=== PATIENT | female | born 1990 | race Two or more races ===

== ENCOUNTER 2017-01-22 07:00 | Inpatient (IN) | payer BC, OTHER ==
[2017-01-22] MEDS: Dextrose 5%-0.9% NaCl 1,000 ML IV SCH ×4 (08:00→18:30)
[2017-01-22] MEDS ORDERED: Oxytocin/Normal Saline 10 UNIT/1,000 ML BAG IV SCH (08:00)
[2017-01-22] MEDS ORDERED: Oxytocin 10 UNIT in Sodium Chloride 0.9% 1,000 ML IV SCH (08:45)
--- NOTE | 2017-01-22 17:53 | PCM.LDHP ---
L&D History of Present Illness - General Date of Service: 01/22/17 Admit Problem/Dx: Patient Status Order with Admit Dx/Problem 01/22/17 07:10 Admission Status [Patient Status] [ADT] Routine 01/22/17 16:54 Admission Status [Patient Status] [ADT] Routine Admission Diagnosis/Problem Admission Diagnosis/Problem Source of Information: Patient History Limitations: Reports: No limitations - History of Present Illness Introduction:: admitted for induction of labor. At term. Normal care. - Related Data Allergies/Adverse Reactions: Allergies Allergy/AdvReac Type Severity Reaction Status Date / Time nut - unspecified Allergy Itching Verified 01/22/17 07:50 venom-honey bee Allergy Hives Verified 01/22/17 07:50 [bee venom (honey bee)] Home Medications: Home Meds Ondansetron [Zofran ODT] 4 mg PO Q6H PRN #10 tab.dis 06/18/16 [Rx] PWV556/Iron Fumarate/FA/DSS [ 19 Tablet] 1 tab PO DAILY 06/18/16 [ History] Metoclopramide [Reglan] 5 mg PO TID PRN 08/02/16 [History] Past Medical History HEENT History: Reports: None Cardiovascular History: Reports: Hypertension Respiratory History: Reports: Bronchitis, recurrent Gastrointestinal History: Reports: GERD Genitourinary History: Reports: None HOME HEALTH CARE PROVIDER History: Reports: Other Musculoskeletal History: CHRONIC SHOULDER PAIN. Neurological History: Reports: Migraines Psychiatric History: Reports: Anxiety, Depression Endocrine/Metabolic History: Reports: None Hematologic History: Reports: None Immunologic History: Reports: None Oncologic (Cancer) History: Reports: None Dermatologic History: Reports: Eczema - Infectious Disease History Infectious Disease History: Reports: Chicken pox - Past Surgical History Head Surgeries/Procedures: Reports: None HEENT Surgical History: Reports: None Cardiovascular Surgical History: Reports: None Respiratory Surgical History: Reports: None GI Surgical History: Reports: None Female Surgical History: Reports: None Endocrine Surgical History: Reports: None Neurological Surgical History: Reports: None Musculoskeletal Surgical History: Reports: None Oncologic Surgical History: Reports: None Dermatological Surgical History: Reports: None Social & Family History - Family History Family Medical History: Noncontributory HEENT: Reports: None Cardiac: Reports: Hypertension, [place] Respiratory: Reports: Asthma GI: Reports: GERD : Reports: None OBGYN: Reports: Ectopic , Musculoskeletal: Reports: Back pain, chronic, Osteoarthritis Neurological: Reports: Alzheimers disease Psychiatric: Reports: Abuse, victim of, Anxiety, Bipolar, Depression, Mood swings, Panic attack Endocrine/Metabolic: Reports: Diabetes, type II Hematologic: Reports: Anemia Immunologic: Reports: None Dermatologic: Reports: Eczema Oncologic: Reports: Breast, Skin - Tobacco Use Smoking Status *Q: Current Every Day Smoker Years of Tobacco use: 9 Packs/Tins Daily: 0.5 Used Tobacco, but Quit: No Second Hand Smoke Exposure: Yes - Caffeine Use Caffeine Use: Reports: None - Recreational Drug Use Recreational Drug Use: No H&P Review of Systems - Review of Systems: Review Of Systems: ROS reveals no pertinent complaints other than HPI. L&D Exam - Exam Exam: See Below - Vital Signs Vital Signs: Last Vital Signs Temp 98.1 F 01/22/17 17:00 Pulse 82 01/22/17 17:00 Resp 17 01/22/17 17:00 BP 120/79 01/22/17 17:00 Pulse Ox 100 01/22/17 17:00 Weight: 67.132 kg - OB Specific Contraction Duration (sec): 50-70 Contraction Frequency (min): 1-2 Contraction Intensity: Mild - Mckeon Score Mckeon Score Cervix Position: Midposition Mckeon Score Consistency: Medium Mckeon Score Dilation: 1-2 cm - Exam Quality Assessment: supplemental oxygen General: alert HEENT: PERRLA Neck: supple Cardiovascular: regular rate Abdomen: normal bowel sounds Rectal Exam: Normal exam Genitourinary: Normal external exam, Normal bimanual exam, Cervical dilitation, Enlarged uterus. No: Cervical fluid, Cervical lesions, Cervix motion tenderness , Vaginal discharge, Vaginal tears Back Exam: normal inspection Extremities: normal inspection Skin: warm Neurological: cranial nerves intact Psychiatric: alert, normal affect - Patient Data Result Diagrams: 01/23/17 06:20 - Problem List (1) Elective induction of labor planned SNOMED Code(s): 395333174 ICD Code: [id number] - Status: Acute Current Visit: Yes (2) Normal SNOMED Code(s): 16980137 ICD Code: Z34.90 - ENCNTR FOR SUPRVSN OF NORMAL , UNSP, UNSP TRIMESTER Status: Acute Current Visit: Yes Problem List Initiated/Reviewed/Updated: Yes Orders Last 24hrs: Active Orders 24 hr Category Date Time Status Admission Status [Patient Status] [ADT] Routine ADT 01/22/17 07:10 Active Admission Status [Patient Status] [ADT] Routine ADT 01/22/17 16:54 Active Communication Order [RC] ASDIRECTED Care 01/22/17 07:49 Active Communication Order [RC] ASDIRECTED Care 01/22/17 07:49 Active Communication Order [RC] ASDIRECTED Care 01/22/17 07:49 Active Communication Order [RC] ASDIRECTED Care 01/22/17 07:49 Active Notify Provider [RC] PRN Care 01/22/17 07:49 Active Notify Provider [RC] STAT Care 01/22/17 07:49 Active Vital Signs [RC] PER UNIT ROUTINE Care 01/22/17 07:49 Active Clear Liquid Diet [DIET] Diet 01/22/17 Lunch Active Dextrose 5%-0.9% NaCl [Dextrose 5%-Normal Saline] 1,000 Med 01/22/17 08:00 Active ml IV ASDIRECTED Oxytocin [Pitocin] 10 unit Med 01/22/17 08:45 Active Sodium Chloride 0.9% [Normal Saline] 1,000 ml IV TITRATE Medication Orders Dextrose/Sodium Chloride (Dextrose 5%-Normal Saline) 1,000 mls @ 125 mls/hr IV ASDIRECTED CARMELLA Last Admin: 01/22/17 15:39 Dose: 125 mls/hr Infusion: 01/22/17 15:39 Dose: 125 mls/hr Admin: 01/22/17 12:23 Dose: 125 mls/hr Infusion: 01/22/17 12:23 Dose: 125 mls/hr Admin: 01/22/17 08:00 Dose: 125 mls/hr Oxytocin 10 unit/ Sodium (Chloride) 1,001 mls @ 12.01 mls/hr IV TITRATE CARMELLA; 2 MUNITS/MIN PRN Reason: Protocol Last Titration: 01/22/17 17:00 Dose: 10 munits/min, 60.06 mls/hr Titration: 01/22/17 14:54 Dose: 12 munits/min, 72.07 mls/hr Titration: 01/22/17 14:25 Dose: 10 munits/min, 60.06 mls/hr Titration: 01/22/17 13:32 Dose: 8 munits/min, 48.04 mls/hr Titration: 01/22/17 12:52 Dose: 6 munits/min, 36.03 mls/hr Titration: 01/22/17 12:10 Dose: 4 munits/min, 24.02 mls/hr Titration: 01/22/17 11:18 Dose: 6 munits/min, 36.03 mls/hr Titration: 01/22/17 10:35 Dose: 8 munits/min, 48.04 mls/hr Titration: 01/22/17 09:34 Dose: 6 munits/min, 36.03 mls/hr Titration: 01/22/17 08:45 Dose: 4 munits/min, 24.02 mls/hr Admin: 01/22/17 08:15 Dose: 2 munits/min, 12.01 mls/hr Assessment/Plan Comment:: Start Pitocin.
[2017-01-22] MEDS ORDERED: fentaNYL 100 MCG/2 ML SDV ITHECAL ONE (19:45)
[2017-01-22] MEDS ORDERED: Morphine PF 10 MG/10 ML SDV ONE (19:45)
[2017-01-22] MEDS ORDERED: Naloxone 0.4 MG/ML SDV IVPUSH PRN ×2 (19:48)
[2017-01-22] MEDS ORDERED: diphenhydrAMINE 50 MG/ML SDV IVPUSH PRN ×2 (19:48)
[2017-01-22] MEDS ORDERED: Nalbuphine 10 MG/1 ML Vial IVPUSH PRN (19:48)
[2017-01-22] MEDS ORDERED: Naltrexone 50 MG Tab PO SCH (19:48)
[2017-01-22] MEDS ORDERED: Naloxone 0.4 MG in Sodium Chloride 0.9% 100 ML IV PRN (19:48)
[2017-01-22] MEDS ORDERED: ePHEDrine 50 MG/ML SDV IVPUSH PRN (19:48)
[2017-01-22] MEDS ORDERED: Naltrexone 50 MG Tab PO PRN (19:48)
[2017-01-22] MEDS ORDERED: hydrOXYzine HCl 50 MG/ML SDV IM PRN ×2 (19:48)
[2017-01-22] MEDS: Ondansetron 4 MG/2 ML SDV IVPUSH SCH (20:34)
[2017-01-22] MEDS ORDERED: Lactated Ringers 1,000 ML IV SCH (22:45)
[2017-01-23] MEDS: Ibuprofen 600 MG Tab PO SCH ×5 (00:29→23:36)
--- NOTE | 2017-01-23 00:44 | OR ---
DATE OF OPERATION: 01/22/2017 SURGEON: Marky Tovar MD OPERATION: Vacuum extraction or vacuum assisted vaginal delivery. INDICATION: 1. Non-reassuring heart tones (bradycardia). 2. Maternal exertion. 3. Arrested second stage of labor. PERMIT: I explained the risks and benefits to the patient and the family members of vacuum extraction. I covered hemorrhage interventricular maternal injury among others and they accepted the risks and benefits. PREPARATION: The bladder was emptied about 350 mL before delivery; thereafter, estimated baby weight to be about 6.5 to 7 pounds was made. The position of the baby AMAN was determined. The patient already had anesthesia. Vacuum was applied using the [employer] standard vacuum portable and pressure applied to achieve maximum vacuum. There were three total pulls and two detachments and there was progress with each. The station of the baby was +2 and there were no known contraindications present. Date of confinement is 01/22. The baby's head was delivered. The nuchal cord reduced and the rest of the baby was gently extracted after the vacuum was detached. The placenta delivered shortly afterwards intact. There was a grade 2 midline laceration that was repaired expeditiously with 3-0 Vicryl. Estimated blood loss was about 300 mL. The mother tolerated the procedure well. We will continue to follow the baby and the mother in the delivery. The product of the delivery was a vigorous live male , 7 pounds 0 ounces with score of 9 and 9. /[id number] DAVONTE/JAMES
[2017-01-23] MEDS: Acetaminophen/HYDROcodone 325-5 MG Tab PO PRN ×5 (02:10→21:55)
[2017-01-23] MEDS: Ondansetron 4 MG/2 ML SDV IVPUSH SCH ×4 (02:11→21:59)
[2017-01-23] MEDS ORDERED: Morphine 2 MG/ML Syringe IVPUSH PRN (04:10)
[2017-01-23] MEDS: Docusate Sodium 100 MG Cap PO PRN (11:35)
--- NOTE | 2017-01-23 15:42 | CR ---
INDICATION: Pain right hip since Willi position for delivery. RIGHT HIP AND PELVIS: Frontal view of the pelvis and frontal and lateral views of the right hip revealed suggestion of some very minimal degenerative change at the right hip joint with the joint spaces bilaterally well-maintained. Slight separation is noted at the pubic symphysis, not uncommon post delivery. The sacroiliac joints appear to be intact. Hip joint appear to be otherwise intact with no acute fracture or dislocation. Normal bone density is noted. IMPRESSION: Essentially normal pelvis and right hip. Very minimal degenerative change may be present at the right hip joint with a small calcific density along the craniolateral aspect of the acetabulum on the right. There does appear to be slight separation of the pubic symphysis. This likely is on the basis of state, rather than significant abnormality. MTDD
--- NOTE | 2017-01-23 19:25 | PCM.PNPP ---
- General Info Date of Service: 01/23/17 Functional Status: Reports: tolerating diet, new symptoms (Right hip pain,severe ,developed after delivery.Unable to ambulate.). Denies: pain controlled, ambulating - General Info Date of Service: 01/23/17 - Patient Data Vital Signs - most recent: Last Vital Signs Temp 98.1 F 01/23/17 18:00 Pulse 74 01/23/17 18:00 Resp 16 01/23/17 08:00 BP 116/64 01/23/17 18:00 Pulse Ox 98 01/23/17 18:00 Weight - most recent: 67.132 kg I&O - last 24 hours: Intake & Output 01/23/17 01/23/17 01/23/17 06:59 14:59 22:59 Intake Total 750 1150 Output Total 1550 Balance -800 1150 Lab Results - last 24 hrs: Laboratory Results - last 24 hr 01/23/17 Range/Units 06:20 WBC 16.1 H (4.5-12.0) X10-3/uL RBC 3.21 L (3.23-5.20) x10(6)uL Hgb 9.7 L D (11.5-15.5) g/dL Hct 29.3 L D (30.0-51.3) % MCV 91.2 (80-96) fL MCH 30.3 (27.7-33.6) pg MCHC 33.2 (32.2-35.4) g/dL RDW 13.5 (11.5-15.5) % Plt Count 275 (125-369) X10(3)uL MPV 9.1 (7.4-10.4) fL Add Manual Diff Yes Neutrophils % (Manual) 86 H (46-82) % Lymphocytes % (Manual) 12 L (13-37) % Monocytes % (Manual) 2 L (4-12) % Med Orders - Current: Current Medications Hydrocodone Bitart/Acetaminophen ([place] 325-5 Mg) 1 tab PO Q4H PRN PRN Reason: Pain (moderate 4-6) Last Admin: 01/23/17 13:57 Dose: 1 tab Hydrocodone Bitart/Acetaminophen ([place] 325-5 Mg) 2 tab PO Q4H PRN PRN Reason: Pain (moderate 4-6) Diphenhydramine HCl (Benadryl) 25 mg IVPUSH ASDIRECTED PRN PRN Reason: SEVERE EXTRAPYRAMIDAL SYMP Diphenhydramine HCl (Benadryl) 25 mg IVPUSH ASDIRECTED PRN PRN Reason: PRURITUS Docusate Sodium (Colace) 100 mg PO BID PRN PRN Reason: Stool Softener Last Admin: 01/23/17 11:35 Dose: 100 mg Ephedrine Sulfate (Ephedrine Sulfate) 5 mg IVPUSH ASDIRECTED PRN PRN Reason: HYPOTENSION Hydroxyzine HCl (Vistaril) 25 - 50 mg IM Q6H PRN PRN Reason: PRURITUS Hydroxyzine HCl (Vistaril) 25 - 50 mg IM Q4H PRN PRN Reason: N/V Dextrose/Sodium Chloride (Dextrose 5%-Normal Saline) 1,000 mls @ 125 mls/hr IV ASDIRECTED CARMELLA Last Admin: 01/22/17 18:30 Dose: 125 mls/hr Oxytocin 10 unit/ Sodium (Chloride) 1,001 mls @ 12.01 mls/hr IV TITRATE CARMELLA; 2 MUNITS/MIN PRN Reason: Protocol Last Titration: 01/22/17 20:28 Dose: 6 munits/min, 36.03 mls/hr Naloxone HCl 0.4 mg/ Sodium (Chloride) 101 mls @ 25 mls/hr IV ASDIRECTED PRN PRN Reason: RESPIRATORY STATUS Lactated Ringer's (Ringers, Lactated) 1,000 mls @ 150 mls/hr IV ASDIRECTED CARMELLA Last Admin: 01/23/17 05:44 Dose: 150 mls/hr Ibuprofen (Motrin) 600 mg PO Q6H [facility] Last Admin: 01/23/17 17:34 Dose: 600 mg Morphine Sulfate (Morphine) 2 mg IVPUSH Q2H PRN PRN Reason: Pain (severe 7-10) Nalbuphine HCl (Nubain) 10 mg IVPUSH Q1H PRN PRN Reason: PRURITUS Naloxone HCl (Narcan) 0.1 mg IVPUSH ASDIRECTED PRN PRN Reason: RESPIRATROY STATUS Naloxone HCl (Narcan) 0.2 mg IVPUSH ASDIRECTED PRN PRN Reason: REVERSAL Naltrexone HCl (Naltrexone) 25 mg PO ONETIME CARMELLA Last Admin: 01/23/17 00:30 Dose: 25 mg Naltrexone HCl (Naltrexone) 25 mg PO ASDIRECTED PRN PRN Reason: REVERSAL Ondansetron HCl (Zofran) 4 mg IVPUSH Q6H CARMELLA Last Admin: 01/23/17 13:56 Dose: Not Given Discontinued Medications Oxytocin/Sodium Chloride (Pitocin In Ns 10 Units/1,000 Ml) 10 unit in 1,000 mls @ 12 mls/hr IV TITRATE CARMELLA; 2 MUNITS/MIN PRN Reason: Protocol - Interaction Disposition, : in Room with Family Infant Interaction: Holding Infant Support Person: Significant Other, Friend - Recovery Exam Fundal Tone: Firm Fundal Level: At Umbilicus Fundal Placement: Midline Lochia Amount: Small Lochia Color: Rubra/Red Perineum Description: Intact, Minimal Bruising/Swelling, Hemorrhoids Episiotomy/Laceration: Approximated Bladder Status: Voiding Urinary Elimination: Voided - Exam Cardiovascular: Regular Rate Abdomen: bowel sounds present Extremities: no calf tenderness, other (Decreased range of motion right hip.). No: no tenderness/swelling Skin: warm Neurological: no new focal deficit Psy/Mental Status: alert - Problem List & Annotations (1) Elective induction of labor planned SNOMED Code(s): 875006951 Code(s): [id number] - Status: Acute Current Visit: Yes (2) Normal SNOMED Code(s): 00648479 Code(s): Z34.90 - ENCNTR FOR SUPRVSN OF NORMAL , UNSP, UNSP TRIMESTER Status: Acute Current Visit: Yes Qualifiers: Trimester: third trimester Qualified Code(s): Z34.93 - Encounter for supervision of normal , unspecified, third trimester (3) care and examination SNOMED Code(s): 290550601, 283174389, 015379273 Code(s): Z39.2 - ENCOUNTER FOR ROUTINE FOLLOW-UP Status: Acute Current Visit: Yes (4) Hip pain SNOMED Code(s): 60422120, 128291421 Code(s): M25.559 - PAIN IN UNSPECIFIED HIP Status: Acute Current Visit: Yes Qualifiers: Laterality: right Qualified Code(s): M25.551 - Pain in right hip - Problem List Review Problem List Initiated/Reviewed/Updated: Yes - My Orders Last 24 Hours: My Active Orders 01/22/17 19:48 Nalbuphine [Nubain] 10 mg IVPUSH Q1H PRN Naloxone [Narcan] 0.1 mg IVPUSH ASDIRECTED PRN Naloxone [Narcan] 0.2 mg IVPUSH ASDIRECTED PRN Naloxone [Narcan] 0.4 mg Sodium Chloride 0.9% [Normal Saline] 100 ml IV ASDIRECTED Naltrexone 25 mg PO ASDIRECTED PRN Naltrexone 25 mg PO ONETIME diphenhydrAMINE [Benadryl] 25 mg IVPUSH ASDIRECTED PRN diphenhydrAMINE [Benadryl] 25 mg IVPUSH ASDIRECTED PRN ePHEDrine [ePHEDrine Sulfate] 5 mg IVPUSH ASDIRECTED PRN hydrOXYzine HCl [Vistaril] 25 - 50 mg IM Q4H PRN hydrOXYzine HCl [Vistaril] 25 - 50 mg IM Q6H PRN 01/22/17 20:00 Ondansetron [Zofran] 4 mg IVPUSH Q6H 01/22/17 22:45 Lactated Ringers [Ringers, Lactated] 1,000 ml IV ASDIRECTED 01/22/17 23:45 Ibuprofen [Motrin] 600 mg PO Q6H 01/22/17 23:59 Up ad Delia [RC] ASDIRECTED Vital Signs [RC] PFP Acetaminophen/HYDROcodone [[place] 325-5 MG] 1 tab PO Q4H PRN Assess Uterine Involution [WOMSER] Per Unit Routine Breast Pump [WOMSER] Per Unit Routine Ice Therapy [OM.PC] Per Unit Routine Perineal Care [OM.PC] Per Unit Routine Sitz Bath [OM.PC] Per Unit Routine Resuscitation Status Routine 01/23/17 04:09 Acetaminophen/HYDROcodone [[place] 325-5 MG] 2 tab PO Q4H PRN 01/23/17 04:10 Morphine 2 mg IVPUSH Q2H PRN 01/23/17 09:00 Docusate Sodium [Colace] 100 mg PO BID PRN - Plan Plan:: Reviewed Xray hip,negative. Discussed with Dr Emmanuel Will treat symptomatically. Maybe have PT see her if it's not improving. Encourage ambulation Otherwise continue routine post care.
[2017-01-24] MEDS: Acetaminophen/HYDROcodone 325-5 MG Tab PO PRN ×4 (01:47→21:55)
[2017-01-24] MEDS: Ondansetron 4 MG/2 ML SDV IVPUSH SCH ×4 (05:45→20:00)
[2017-01-24] MEDS: Ibuprofen 600 MG Tab PO SCH ×4 (05:46→23:40)
--- NOTE | 2017-01-24 13:52 | PCM.PNPP ---
- General Info Date of Service: 01/24/17 Admission Dx/Problem (Free Text): Patient Status Order with Admit Dx/Problem 01/22/17 07:10 Admission Status [Patient Status] [ADT] Routine 01/22/17 16:54 Admission Status [Patient Status] [ADT] Routine Admission Diagnosis/Problem Admission Diagnosis/Problem Functional Status: Reports: pain controlled, tolerating diet - Review of Systems General: Reports: No Symptoms HEENT: Reports: no symptoms Pulmonary: Reports: no symptoms Cardiovascular: Reports: No Symptoms Gastrointestinal: Reports: No symptoms Genitourinary: Reports: no symptoms Musculoskeletal: Reports: no symptoms Skin: Reports: no symptoms Neurological: Reports: No Symptoms Psychiatric: Reports: no symptoms - General Info Date of Service: 01/24/17 - Patient Data Vital Signs - most recent: Last Vital Signs Temp 98.5 F 01/24/17 07:30 Pulse 72 01/24/17 07:30 Resp 18 01/24/17 07:30 BP 111/65 01/24/17 07:30 Pulse Ox 99 01/24/17 07:30 Weight - most recent: 67.132 kg Med Orders - Current: Current Medications Hydrocodone Bitart/Acetaminophen ([place] 325-5 Mg) 1 tab PO Q4H PRN PRN Reason: Pain (moderate 4-6) Last Admin: 01/23/17 21:55 Dose: 1 tab Hydrocodone Bitart/Acetaminophen ([place] 325-5 Mg) 2 tab PO Q4H PRN PRN Reason: Pain (moderate 4-6) Last Admin: 01/24/17 08:51 Dose: 2 tab Diphenhydramine HCl (Benadryl) 25 mg IVPUSH ASDIRECTED PRN PRN Reason: SEVERE EXTRAPYRAMIDAL SYMP Diphenhydramine HCl (Benadryl) 25 mg IVPUSH ASDIRECTED PRN PRN Reason: PRURITUS Docusate Sodium (Colace) 100 mg PO BID PRN PRN Reason: Stool Softener Last Admin: 01/23/17 11:35 Dose: 100 mg Ephedrine Sulfate (Ephedrine Sulfate) 5 mg IVPUSH ASDIRECTED PRN PRN Reason: HYPOTENSION Hydroxyzine HCl (Vistaril) 25 - 50 mg IM Q6H PRN PRN Reason: PRURITUS Hydroxyzine HCl (Vistaril) 25 - 50 mg IM Q4H PRN PRN Reason: N/V Dextrose/Sodium Chloride (Dextrose 5%-Normal Saline) 1,000 mls @ 125 mls/hr IV ASDIRECTED CARMELLA Last Admin: 01/22/17 18:30 Dose: 125 mls/hr Oxytocin 10 unit/ Sodium (Chloride) 1,001 mls @ 12.01 mls/hr IV TITRATE CARMELLA; 2 MUNITS/MIN PRN Reason: Protocol Last Titration: 01/22/17 20:28 Dose: 6 munits/min, 36.03 mls/hr Naloxone HCl 0.4 mg/ Sodium (Chloride) 101 mls @ 25 mls/hr IV ASDIRECTED PRN PRN Reason: RESPIRATORY STATUS Lactated Ringer's (Ringers, Lactated) 1,000 mls @ 150 mls/hr IV ASDIRECTED CARMELLA Last Admin: 01/23/17 05:44 Dose: 150 mls/hr Ibuprofen (Motrin) 600 mg PO Q6H CARMELLA Last Admin: 01/24/17 12:18 Dose: 600 mg Morphine Sulfate (Morphine) 2 mg IVPUSH Q2H PRN PRN Reason: Pain (severe 7-10) Nalbuphine HCl (Nubain) 10 mg IVPUSH Q1H PRN PRN Reason: PRURITUS Naloxone HCl (Narcan) 0.1 mg IVPUSH ASDIRECTED PRN PRN Reason: RESPIRATROY STATUS Naloxone HCl (Narcan) 0.2 mg IVPUSH ASDIRECTED PRN PRN Reason: REVERSAL Naltrexone HCl (Naltrexone) 25 mg PO ONETIME CARMELLA Last Admin: 01/23/17 00:30 Dose: 25 mg Naltrexone HCl (Naltrexone) 25 mg PO ASDIRECTED PRN PRN Reason: REVERSAL Ondansetron HCl (Zofran) 4 mg IVPUSH Q6H CARMELLA Last Admin: 01/24/17 08:47 Dose: Not Given Discontinued Medications Oxytocin/Sodium Chloride (Pitocin In Ns 10 Units/1,000 Ml) 10 unit in 1,000 mls @ 12 mls/hr IV TITRATE CARMELLA; 2 MUNITS/MIN PRN Reason: Protocol - Infant Interaction Disposition, : [place] in Room with Family Interaction: Holding Support Person: Significant Other, Friend - Recovery Exam Fundal Tone: Firm Fundal Level: At Umbilicus Fundal Placement: Midline Lochia Amount: Small, Moderate Lochia Color: Rubra/Red Perineum Description: Intact, Minimal Bruising/Swelling, Hemorrhoids Episiotomy/Laceration: Approximated Bladder Status: Voiding Urinary Elimination: Voided - Exam General: alert, oriented HEENT: Pupils equal Neck: supple Lungs: Clear to auscultation, Normal respiratory effort Cardiovascular: Regular Rate, Regular Rhythm Abdomen: bowel sounds present, soft, no tenderness, no distension Extremities: no edema Skin: warm, dry, intact Wound/Incisions: healing well Neurological: no new focal deficit Psy/Mental Status: alert, normal affect, normal mood - Problem List & Annotations (1) Elective induction of labor planned SNOMED Code(s): 470762334 Code(s): BUN2119 - Status: Acute Current Visit: Yes (2) Normal SNOMED Code(s): 75989314 Code(s): Z34.90 - ENCNTR FOR SUPRVSN OF NORMAL , UNSP, UNSP TRIMESTER Status: Acute Current Visit: Yes Qualifiers: Trimester: third trimester Qualified Code(s): Z34.93 - Encounter for supervision of normal , unspecified, third trimester (3) care and examination SNOMED Code(s): 643675577, 202554278, 744382039 Code(s): Z39.2 - ENCOUNTER FOR ROUTINE FOLLOW-UP Status: Acute Current Visit: Yes (4) Hip pain SNOMED Code(s): 45210780, 314703578 Code(s): M25.559 - PAIN IN UNSPECIFIED HIP Status: Acute Current Visit: Yes Qualifiers: Laterality: right Qualified Code(s): M25.551 - Pain in right hip - Problem List Review Problem List Initiated/Reviewed/Updated: Yes - Plan Plan:: Pain better. DC in AM Consider ambualtory PT
[2017-01-24] MEDS: Docusate Sodium 100 MG Cap PO PRN (16:13)
[2017-01-25] MEDS: Ibuprofen 600 MG Tab PO SCH ×2 (06:11→12:07)
[2017-01-25] MEDS: Acetaminophen/HYDROcodone 325-5 MG Tab PO PRN (08:27)
[2017-01-25] MEDS: Docusate Sodium 100 MG Cap PO PRN (08:28)
--- NOTE | 2017-01-25 08:59 | PCM.PNPP ---
- General Info Date of Service: 01/25/17 Functional Status: Reports: pain controlled - Review of Systems General: Reports: No Symptoms HEENT: Reports: no symptoms Pulmonary: Reports: no symptoms Cardiovascular: Reports: No Symptoms Gastrointestinal: Reports: No symptoms Genitourinary: Reports: no symptoms Musculoskeletal: Reports: no symptoms Skin: Reports: no symptoms Neurological: Reports: No Symptoms Psychiatric: Reports: no symptoms - General Info Date of Service: 01/25/17 - Patient Data Vital Signs - most recent: Last Vital Signs Temp 98.4 F 01/25/17 00:00 Pulse 78 01/25/17 00:00 Resp 20 01/25/17 00:00 BP 117/75 01/25/17 00:00 Pulse Ox 98 01/25/17 00:00 Weight - most recent: 67.132 kg Med Orders - Current: Current Medications Hydrocodone Bitart/Acetaminophen ([place] 325-5 Mg) 1 tab PO Q4H PRN PRN Reason: Pain (moderate 4-6) Last Admin: 01/25/17 08:27 Dose: 1 tab Hydrocodone Bitart/Acetaminophen ([place] 325-5 Mg) 2 tab PO Q4H PRN PRN Reason: Pain (moderate 4-6) Last Admin: 01/24/17 16:12 Dose: 2 tab Diphenhydramine HCl (Benadryl) 25 mg IVPUSH ASDIRECTED PRN PRN Reason: SEVERE EXTRAPYRAMIDAL SYMP Diphenhydramine HCl (Benadryl) 25 mg IVPUSH ASDIRECTED PRN PRN Reason: PRURITUS Docusate Sodium (Colace) 100 mg PO BID PRN PRN Reason: Stool Softener Last Admin: 01/25/17 08:28 Dose: 100 mg Ephedrine Sulfate (Ephedrine Sulfate) 5 mg IVPUSH ASDIRECTED PRN PRN Reason: HYPOTENSION Hydroxyzine HCl (Vistaril) 25 - 50 mg IM Q6H PRN PRN Reason: PRURITUS Hydroxyzine HCl (Vistaril) 25 - 50 mg IM Q4H PRN PRN Reason: N/V Dextrose/Sodium Chloride (Dextrose 5%-Normal Saline) 1,000 mls @ 125 mls/hr IV ASDIRECTED CARMELLA Last Admin: 01/22/17 18:30 Dose: 125 mls/hr Oxytocin 10 unit/ Sodium (Chloride) 1,001 mls @ 12.01 mls/hr IV TITRATE CARMELLA; 2 MUNITS/MIN PRN Reason: Protocol Last Titration: 01/22/17 20:28 Dose: 6 munits/min, 36.03 mls/hr Naloxone HCl 0.4 mg/ Sodium (Chloride) 101 mls @ 25 mls/hr IV ASDIRECTED PRN PRN Reason: RESPIRATORY STATUS Lactated Ringer's (Ringers, Lactated) 1,000 mls @ 150 mls/hr IV ASDIRECTED CARMELLA Last Admin: 01/23/17 05:44 Dose: 150 mls/hr Ibuprofen (Motrin) 600 mg PO Q6H [facility] Last Admin: 01/25/17 06:11 Dose: 600 mg Morphine Sulfate (Morphine) 2 mg IVPUSH Q2H PRN PRN Reason: Pain (severe 7-10) Nalbuphine HCl (Nubain) 10 mg IVPUSH Q1H PRN PRN Reason: PRURITUS Naloxone HCl (Narcan) 0.1 mg IVPUSH ASDIRECTED PRN PRN Reason: RESPIRATROY STATUS Naloxone HCl (Narcan) 0.2 mg IVPUSH ASDIRECTED PRN PRN Reason: REVERSAL Naltrexone HCl (Naltrexone) 25 mg PO ONETIME [facility] Last Admin: 01/23/17 00:30 Dose: 25 mg Naltrexone HCl (Naltrexone) 25 mg PO ASDIRECTED PRN PRN Reason: REVERSAL Discontinued Medications Oxytocin/Sodium Chloride (Pitocin In Ns 10 Units/1,000 Ml) 10 unit in 1,000 mls @ 12 mls/hr IV TITRATE CARMELLA; 2 MUNITS/MIN PRN Reason: Protocol Ondansetron HCl (Zofran) 4 mg IVPUSH Q6H [facility] Last Admin: 01/24/17 20:00 Dose: Not Given - Interaction Infant Disposition, : [place] in Room with Family Infant Interaction: Holding Infant Feeding: Attempted ; Nursed Fair/Poor Support Person: Significant Other, Friend - Recovery Exam Fundal Tone: Firm Fundal Level: At Umbilicus Fundal Placement: Midline Lochia Amount: Small Lochia Color: Rubra/Red Perineum Description: Intact, Minimal Bruising/Swelling, Hemorrhoids Episiotomy/Laceration: Approximated Bladder Status: Voiding Urinary Elimination: Voided - Exam General: alert, oriented HEENT: Pupils equal Neck: supple Lungs: Clear to auscultation, Normal respiratory effort Cardiovascular: Regular Rate, Regular Rhythm Abdomen: bowel sounds present, soft, no tenderness, no distension Extremities: no edema Skin: warm, dry, intact Wound/Incisions: healing well Neurological: no new focal deficit Psy/Mental Status: alert, normal affect, normal mood - Problem List & Annotations (1) Elective induction of labor planned SNOMED Code(s): 049839012 Code(s): BSQ2596 - Status: Acute Current Visit: Yes (2) Normal SNOMED Code(s): 94825515 Code(s): Z34.90 - ENCNTR FOR SUPRVSN OF NORMAL , UNSP, UNSP TRIMESTER Status: Acute Current Visit: Yes Qualifiers: Trimester: third trimester Qualified Code(s): Z34.93 - Encounter for supervision of normal , unspecified, third trimester (3) care and examination SNOMED Code(s): 290655173, 673017290, 046775518 Code(s): Z39.2 - ENCOUNTER FOR ROUTINE FOLLOW-UP Status: Acute Current Visit: Yes (4) Hip pain SNOMED Code(s): 00508367, 667465318 Code(s): M25.559 - PAIN IN UNSPECIFIED HIP Status: Acute Current Visit: Yes Qualifiers: Laterality: right Qualified Code(s): M25.551 - Pain in right hip - Problem List Review Problem List Initiated/Reviewed/Updated: Yes - Plan Plan:: DC home today
--- NOTE | 2017-01-25 09:29 | PCM.DCSUM1 ---
Discharge Summary - Hospital Course Free Text/Narrative:: Did well. Pain stable. - Discharge Data Discharge Date: 01/25/17 Discharge Disposition: Home, Self-Care 01 Condition: Good - Discharge Diagnosis/Problem(s) (1) Elective induction of labor planned SNOMED Code(s): 450209262 ICD Code: [id number] - Status: Acute Current Visit: Yes (2) Normal SNOMED Code(s): 14779946 ICD Code: Z34.90 - ENCNTR FOR SUPRVSN OF NORMAL , UNSP, UNSP TRIMESTER Status: Acute Current Visit: Yes Qualifiers: Trimester: third trimester Qualified Code(s): Z34.93 - Encounter for supervision of normal , unspecified, third trimester (3) care and examination SNOMED Code(s): 900572015, 574882318, 331888608 ICD Code: Z39.2 - ENCOUNTER FOR ROUTINE FOLLOW-UP Status: Acute Current Visit: Yes (4) Hip pain SNOMED Code(s): 87924055, 567016421 ICD Code: M25.559 - PAIN IN UNSPECIFIED HIP Status: Acute Current Visit: Yes Qualifiers: Laterality: right Qualified Code(s): M25.551 - Pain in right hip - Discharge Plan Home Medications: Home Meds Ondansetron [Zofran ODT] 4 mg PO Q6H PRN #10 tab.dis 06/18/16 [Rx] [id number]/Iron Fumarate/FA/DSS [ 19 Tablet] 1 tab PO DAILY 06/18/16 [ History] Metoclopramide [Reglan] 5 mg PO TID PRN 08/02/16 [History] - Discharge Summary/Plan Comment DC Time >30 min.: Yes - General Info Date of Service: 01/25/17 Admission Dx/Problem (Free Text: Patient Status Order with Admit Dx/Problem 01/22/17 07:10 Admission Status [Patient Status] [ADT] Routine 01/22/17 16:54 Admission Status [Patient Status] [ADT] Routine Admission Diagnosis/Problem Admission Diagnosis/Problem Functional Status: Reports: pain controlled, tolerating diet - Review of Systems General: Reports: No Symptoms HEENT: Reports: no symptoms Pulmonary: Reports: no symptoms Cardiovascular: Reports: No Symptoms Gastrointestinal: Reports: No symptoms Genitourinary: Reports: no symptoms Musculoskeletal: Reports: no symptoms Skin: Reports: no symptoms Neurological: Reports: No Symptoms Psychiatric: Reports: no symptoms - Patient Data Vitals - Most Recent: Last Vital Signs Temp 98.4 F 01/25/17 00:00 Pulse 78 01/25/17 00:00 Resp 20 01/25/17 00:00 BP 117/75 01/25/17 00:00 Pulse Ox 98 01/25/17 00:00 Weight - Most Recent: 67.132 kg Med Orders - Current: Current Medications Hydrocodone Bitart/Acetaminophen ([place] 325-5 Mg) 1 tab PO Q4H PRN PRN Reason: Pain (moderate 4-6) Last Admin: 01/25/17 08:27 Dose: 1 tab Hydrocodone Bitart/Acetaminophen ([place] 325-5 Mg) 2 tab PO Q4H PRN PRN Reason: Pain (moderate 4-6) Last Admin: 01/24/17 16:12 Dose: 2 tab Diphenhydramine HCl (Benadryl) 25 mg IVPUSH ASDIRECTED PRN PRN Reason: SEVERE EXTRAPYRAMIDAL SYMP Diphenhydramine HCl (Benadryl) 25 mg IVPUSH ASDIRECTED PRN PRN Reason: PRURITUS Docusate Sodium (Colace) 100 mg PO BID PRN PRN Reason: Stool Softener Last Admin: 01/25/17 08:28 Dose: 100 mg Ephedrine Sulfate (Ephedrine Sulfate) 5 mg IVPUSH ASDIRECTED PRN PRN Reason: HYPOTENSION Hydroxyzine HCl (Vistaril) 25 - 50 mg IM Q6H PRN PRN Reason: PRURITUS Hydroxyzine HCl (Vistaril) 25 - 50 mg IM Q4H PRN PRN Reason: N/V Dextrose/Sodium Chloride (Dextrose 5%-Normal Saline) 1,000 mls @ 125 mls/hr IV ASDIRECTED CARMELLA Last Admin: 01/22/17 18:30 Dose: 125 mls/hr Oxytocin 10 unit/ Sodium (Chloride) 1,001 mls @ 12.01 mls/hr IV TITRATE CARMELLA; 2 MUNITS/MIN PRN Reason: Protocol Last Titration: 01/22/17 20:28 Dose: 6 munits/min, 36.03 mls/hr Naloxone HCl 0.4 mg/ Sodium (Chloride) 101 mls @ 25 mls/hr IV ASDIRECTED PRN PRN Reason: RESPIRATORY STATUS Lactated Ringer's (Ringers, Lactated) 1,000 mls @ 150 mls/hr IV ASDIRECTED [facility] Last Admin: 01/23/17 05:44 Dose: 150 mls/hr Ibuprofen (Motrin) 600 mg PO Q6H [facility] Last Admin: 01/25/17 06:11 Dose: 600 mg Morphine Sulfate (Morphine) 2 mg IVPUSH Q2H PRN PRN Reason: Pain (severe 7-10) Nalbuphine HCl (Nubain) 10 mg IVPUSH Q1H PRN PRN Reason: PRURITUS Naloxone HCl (Narcan) 0.1 mg IVPUSH ASDIRECTED PRN PRN Reason: RESPIRATROY STATUS Naloxone HCl (Narcan) 0.2 mg IVPUSH ASDIRECTED PRN PRN Reason: REVERSAL Naltrexone HCl (Naltrexone) 25 mg PO ONETIME [facility] Last Admin: 01/23/17 00:30 Dose: 25 mg Naltrexone HCl (Naltrexone) 25 mg PO ASDIRECTED PRN PRN Reason: REVERSAL Discontinued Medications Oxytocin/Sodium Chloride (Pitocin In Ns 10 Units/1,000 Ml) 10 unit in 1,000 mls @ 12 mls/hr IV TITRATE CARMELLA; 2 MUNITS/MIN PRN Reason: Protocol Ondansetron HCl (Zofran) 4 mg IVPUSH Q6H [facility] Last Admin: 01/24/17 20:00 Dose: Not Given - Exam General: Reports: alert, oriented HEENT: Reports: Pupils equal, Pupils reactive, EOMI, Mucous membr. moist/pink Neck: Reports: supple Lungs: Reports: Clear to auscultation, Normal respiratory effort Cardiovascular: Reports: Regular Rate, Regular Rhythm Abdomen: Reports: bowel sounds present, soft, no tenderness, no distension (Female) Exam: Normal external exam, Normal speculum exam, Normal bimanual exam Rectal (Female) Exam: Normal Exam, Normal rectal tone Back Exam: Reports: normal inspection, full range of motion Extremities: Reports: no edema, normal pulses Skin: Reports: warm, dry, intact Wound/Incisions: Reports: healing well Neurological: Reports: no new focal deficit Psy/Mental Status: Reports: alert, normal affect, normal mood EKG INTERPRETATION Rhythm: NSR *Q Meaningful Use (DIS) - VTE *Q VTE Criteria *Q: - Stroke *Q Stroke Criteria *Q: - AMI *Q AMI Criteria *Q:
[2017-01-25 10:12] VITALS: BP 130/71
== END 2017-01-25 13:20 | disposition home or self-care (01) | DRG 560 ==
LOC: FB.OB 07:00 → OBSVTOIN 16:54
PROVIDERS: ADMIT Family Medicine; ATTEND Family Medicine
PROC: 10D07Z6 Extraction of Products of Conception, Vacuum, Via Natural or Artificial Opening (ICD-10-PCS; principal; 2017-01-22)
DX: O76 Abnormality in fetal heart rate and rhythm complicating labor and delivery (principal); O99.89 Other specified diseases and conditions complicating pregnancy, childbirth and the puerperium; O99.62 Diseases of the digestive system complicating childbirth; O63.1 Prolonged second stage (of labor); M25.551 Pain in right hip; K21.9 Gastro-esophageal reflux disease without esophagitis; Z37.0 Single live birth; Z3A.39 39 weeks gestation of pregnancy
CPT/HCPCS: 36415; 73502-RT; 85025; A9270-GY; J2270; J2590; J3010; J7040; J7120

== ENCOUNTER 2017-08-16 04:01 | Emergency (ER) | payer SELFPAY ==
[2017-08-16 06:02] VITALS: BP 122/66
--- NOTE | 2017-08-16 06:05 | EDM.PDOCBH ---
ED HPI GENERAL MEDICAL PROBLEM - General Chief Complaint: Behavioral/Psych Stated Complaint: DEPRESSION Time Seen by Provider: 08/16/17 04:10 Source of Information: Reports: Patient History Limitations: Reports: No Limitations - History of Present Illness INITIAL COMMENTS - FREE TEXT/NARRATIVE: Patient is 6 months and is on Depression medication Zoloft. She is still depressed and is very anxious and is not sleeping well. She is up all the time and is irritable. She does not want to hurt herself or anyone else. She is uncomfortable and wants some help. 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 Medication(s) (Zoloft.) lower abdomen & back Pain Score (Numeric/FACES): 4 - Related Data Allergies Allergy/AdvReac Type Severity Reaction Status Date / Time nut - unspecified Allergy Itching Verified 08/16/17 04:30 venom-honey bee Allergy Hives Verified 08/16/17 04:30 [bee venom (honey bee)] Home Meds: Home Meds [id number]/Iron Fumarate/FA/DSS [ 19 Tablet] 1 tab PO DAILY 06/18/16 [ History] Ibuprofen 600 mg PO Q8H 08/16/17 [History] QUEtiapine [SEROquel] 25 mg PO BEDTIME 10 Days #10 tablet 08/16/17 [Rx] Sertraline [Zoloft] 100 mg PO DAILY 08/16/17 [History] Past Medical History HEENT History: Reports: None Cardiovascular History: Reports: Hypertension Respiratory History: Reports: Bronchitis, Recurrent Gastrointestinal History: Reports: GERD Genitourinary History: Reports: None 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 Neurological History: Reports: Migraines Psychiatric History: Reports: Anxiety, Depression Endocrine/Metabolic History: Reports: None Hematologic History: Reports: None Immunologic History: Reports: None Oncologic (Cancer) History: Reports: None Dermatologic History: Reports: Eczema - Infectious Disease History Infectious Disease History: Reports: Chicken Pox - Past Surgical History Head Surgeries/Procedures: Reports: None HEENT Surgical History: Reports: None Cardiovascular Surgical History: Reports: None GI Surgical History: Reports: None Female Surgical History: Reports: None Endocrine Surgical History: Reports: None Neurological Surgical History: Reports: None Musculoskeletal Surgical History: Reports: None Oncologic Surgical History: Reports: None Dermatological Surgical History: Reports: None Social & Family History - Family History Family Medical History: Noncontributory HEENT: Reports: None Cardiac: Reports: Hypertension, [place] Respiratory: Reports: Asthma GI: Reports: GERD : Reports: None OBGYN: Reports: Ectopic , Musculoskeletal: Reports: Back pain, Chronic, Osteoarthritis Neurological: Reports: Alzheimers Disease Psychiatric: Reports: Abuse, Victim of, Anxiety, Bipolar, Depression, Mood Swings, Panic Attack Endocrine/Metabolic: Reports: Diabetes, type II Hematologic: Reports: Anemia Immunologic: Reports: None Dermatologic: Reports: Eczema Oncologic: Reports: Breast, Skin - Tobacco Use Smoking Status *Q: Current Every Day Smoker Years of Tobacco use: 10 Packs/Tins Daily: 0.7 Used Tobacco, but Quit: No Second Hand Smoke Exposure: Yes - Caffeine Use Caffeine Use: Reports: Coffee, Soda, Tea - Recreational Drug Use Recreational Drug Use: No ED ROS GENERAL - Review of Systems Review Of Systems: ROS reveals no pertinent complaints other than HPI. ED EXAM, BEHAVIORAL HEALTH - Physical Exam Exam: See Below Exam Limited By: No Limitations General Appearance: Alert, WD/WN, No Apparent Distress Eye Exam: Bilateral Eye: EOMI, Normal Fundi, Normal Inspection, PERRL Ears: Normal External Exam, Normal Canal, Hearing Grossly Normal, Normal TMs Nose: Normal Inspection, Normal Mucosa, No Blood Throat/Mouth: Normal Inspection, Normal Lips, Normal Teeth, Normal Gums, Normal Oropharynx, Normal Voice, No Airway Compromise Head: Atraumatic, Normocephalic Neck: Normal Inspection, Supple, Non-Tender, Full Range of Motion Respiratory/Chest: No Respiratory Distress, Lungs Clear, Normal Breath Sounds, No Accessory Muscle Use, Chest Non-Tender Cardiovascular: Normal Peripheral Pulses GI/Abdominal: Normal Bowel Sounds, Soft, Non-Tender, No Organomegaly, No Distention, No Abnormal Bruit, No Mass Back Exam: Normal Inspection, Full Range of Motion, NT Extremities: Normal Inspection, Normal Range of Motion, Non-Tender, Normal Capillary Refill, No Pedal Edema Neurological: Alert, Normal Mood/Affect, CN II-XII Intact, Normal Cognition, Normal Gait, Normal Reflexes, No Motor/Sensory Deficits, Oriented x 3 Psychiatric: Depressed Mood, Restless, Agitated, Pressured Speech Skin Exam: Warm, Dry, Intact, Normal color, No rash COURSE, BEHAVIORAL HEALTH COMP - Course Vital Signs: Last Vital Signs Temp 36.6 C 08/16/17 06:01 Pulse 100 08/16/17 06:01 Resp 17 08/16/17 06:01 BP 122/66 08/16/17 06:01 Pulse Ox 95 08/16/17 06:01 Orders, Labs, Meds: Laboratory Tests 08/16/17 08/16/17 08/16/17 Range/Units 04:45 04:45 04:45 WBC 7.3 (4.5-12.0) X10-3/uL RBC 4.21 (3.23-5.20) x10(6)uL Hgb 13.2 D (11.5-15.5) g/dL Hct 38.5 (30.0-51.3) % MCV 91.6 (80-96) fL MCH 31.3 (27.7-33.6) pg MCHC 34.2 (32.2-35.4) g/dL RDW 14.0 (11.5-15.5) % Plt Count 394 H (125-369) X10(3)uL MPV 8.6 (7.4-10.4) fL Neut % (Auto) 50.0 (46-82) % Lymph % (Auto) 36.6 (13-37) % [place] % (Auto) 9.9 (4-12) % Eos % (Auto) 3 (1.0-5.0) % Baso % (Auto) 1 (0-2) % Neut # (Auto) 3.7 (1.6-8.3) # Lymph # (Auto) 2.7 (0.6-5.0) # [place] # (Auto) 0.7 (0.0-1.3) # Eos # (Auto) 0.2 (0.0-0.8) # Baso # (Auto) 0.0 (0.0-0.2) # Sodium 144 D (135-145) mmol/L Potassium 3.1 L (3.5-5.3) mmol/L Chloride 109 D (100-110) mmol/L Carbon Dioxide 26 (23-29) mmol/L BUN 9 (5-20) mg/dL Creatinine 0.6 (0.6-1.3) mg/dL Est Cr Clr Drug Dosing 114.33 mL/min Estimated GFR (MDRD) > 60 (>60) BUN/Creatinine Ratio 15.0 (9-20) Glucose 116 (80-116) mg/dL Calcium 8.0 L (8.6-10.2) mg/dL Total Bilirubin 0.2 (0.1-1.3) mg/dL AST 17 (5-27) IU/L ALT 12 L (14-26) IU/L Alkaline Phosphatase 83 (56-112) IU/L Total Protein 7.2 (6.0-8.0) g/dL Albumin 4.3 (3.5-5.2) g/dL Globulin 2.9 g/dL Albumin/Globulin Ratio 1.5 TSH, Ultra Sensitive 0.65 (0.4-5.5) nlU/mL Urine Color (YELLOW) Urine Appearance (CLEAR) Urine pH (5.0-6.5) Ur Specific [place] (1.010-1.025) Urine Protein (NEGATIVE) mg/dL Urine Glucose (UA) (NEGATIVE) mg/dL Urine Ketones (NEGATIVE) mg/dL Urine Occult Blood (NEGATIVE) Urine Nitrite (NEGATIVE) Urine Bilirubin (NEGATIVE) Urine Urobilinogen (NEGATIVE) mg/dL Ur Leukocyte Esterase (NEGATIVE) Urine RBC (0) Urine WBC (0) Ur Squamous Epith Cells (NS,R,O) Urine Bacteria (NS) 08/16/17 Range/Units 04:55 WBC (4.5-12.0) X10-3/uL RBC (3.23-5.20) x10(6)uL Hgb (11.5-15.5) g/dL Hct (30.0-51.3) % MCV (80-96) fL MCH (27.7-33.6) pg MCHC (32.2-35.4) g/dL RDW (11.5-15.5) % Plt Count (125-369) X10(3)uL MPV (7.4-10.4) fL Neut % (Auto) (46-82) % Lymph % (Auto) (13-37) % [place] % (Auto) (4-12) % Eos % (Auto) (1.0-5.0) % Baso % (Auto) (0-2) % Neut # (Auto) (1.6-8.3) # Lymph # (Auto) (0.6-5.0) # [place] # (Auto) (0.0-1.3) # Eos # (Auto) (0.0-0.8) # Baso # (Auto) (0.0-0.2) # Sodium (135-145) mmol/L Potassium (3.5-5.3) mmol/L Chloride (100-110) mmol/L Carbon Dioxide (23-29) mmol/L BUN (5-20) mg/dL Creatinine (0.6-1.3) mg/dL Est Cr Clr Drug Dosing mL/min Estimated GFR (MDRD) (>60) BUN/Creatinine Ratio (9-20) Glucose (80-116) mg/dL Calcium (8.6-10.2) mg/dL Total Bilirubin (0.1-1.3) mg/dL AST (5-27) IU/L ALT (14-26) IU/L Alkaline Phosphatase (56-112) IU/L Total Protein (6.0-8.0) g/dL Albumin (3.5-5.2) g/dL Globulin g/dL Albumin/Globulin Ratio TSH, Ultra Sensitive (0.4-5.5) nlU/mL Urine Color Yellow (YELLOW) Urine Appearance Clear (CLEAR) Urine pH 6.5 (5.0-6.5) Ur Specific [place] 1.010 (1.010-1.025) Urine Protein Negative (NEGATIVE) mg/dL Urine Glucose (UA) Normal (NEGATIVE) mg/dL Urine Ketones Negative (NEGATIVE) mg/dL Urine Occult Blood Negative (NEGATIVE) Urine Nitrite Negative (NEGATIVE) Urine Bilirubin Negative (NEGATIVE) Urine Urobilinogen Normal (NEGATIVE) mg/dL Ur Leukocyte Esterase Negative (NEGATIVE) Urine RBC 0-5 (0) Urine WBC 0-5 (0) Ur Squamous Epith Cells Rare (NS,R,O) Urine Bacteria Occasional H (NS) Re-Assessment/Re-Exam: Patient did fall asleep and had an uneventful ED course. She will be started on Seroquel 25 mg po qhs, #10. No until she sees Dr. Tovar next week. Departure - Departure Time of Disposition: 06:08 Disposition: Home, Self-Care 01 Condition: Good Clinical Impression: Depression affecting , - Discharge Information Prescriptions: QUEtiapine [SEROquel] 25 mg PO BEDTIME 10 Days #10 tablet Instructions: Hypokalemia Referrals: Marky Tovar MD [Primary Care Provider] - Forms: ED Department Discharge Additional Instructions: Eat plenty of banana and oranges. See primary care provider as necessary.
== END 2017-08-16 06:10 | disposition home or self-care (01) ==
LOC: FB.ED 04:01
DX: F53 Mental and behavioral disorders associated with the puerperium, not elsewhere classified (principal); F17.210 Nicotine dependence, cigarettes, uncomplicated; Z91.030 Bee allergy status; Z91.018 Allergy to other foods
CPT/HCPCS: 36415; 80053; 81001; 84443; 85025; 99283; 99284

== ENCOUNTER 2017-09-26 00:59 | Emergency (ER) | payer SELFPAY ==
[2017-09-26 01:17] VITALS: BP 122/69
--- NOTE | 2017-09-26 01:26 | EDM.PDOC ---
ED HPI GENERAL MEDICAL PROBLEM - General Chief Complaint: General Stated Complaint: TOOTH PAIN Time Seen by Provider: 09/26/17 01:10 Source of Information: Reports: Patient History Limitations: Reports: No Limitations - History of Present Illness INITIAL COMMENTS - FREE TEXT/NARRATIVE: Briana comes in for inspection of a deeply caried molar that broke this evening while chewing food. There is residual pain, but no discharge or bleeding. She has had dental issues in the past, with reportedly limited resources for dental surgery. She has tried no meds. - Related Data Allergies Allergy/AdvReac Type Severity Reaction Status Date / Time nut - unspecified Allergy Itching Verified 08/16/17 04:30 venom-honey bee Allergy Hives Verified 08/16/17 04:30 [bee venom (honey bee)] Home Meds: Home Meds [id number]/Iron Fumarate/FA/DSS [ 19 Tablet] 1 tab PO DAILY 06/18/16 [ History] Ibuprofen 600 mg PO Q8H 08/16/17 [History] Sertraline [Zoloft] 100 mg PO DAILY 08/16/17 [History] Past Medical History HEENT History: Reports: None Cardiovascular History: Reports: Hypertension Respiratory History: Reports: Bronchitis, Recurrent Gastrointestinal History: Reports: GERD Genitourinary History: Reports: None 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 Neurological History: Reports: Migraines Psychiatric History: Reports: Anxiety, Depression Endocrine/Metabolic History: Reports: None Hematologic History: Reports: None Immunologic History: Reports: None Oncologic (Cancer) History: Reports: None Dermatologic History: Reports: Eczema - Infectious Disease History Infectious Disease History: Reports: Chicken Pox - Past Surgical History Head Surgeries/Procedures: Reports: None HEENT Surgical History: Reports: None Cardiovascular Surgical History: Reports: None GI Surgical History: Reports: None Female Surgical History: Reports: None Endocrine Surgical History: Reports: None Neurological Surgical History: Reports: None Musculoskeletal Surgical History: Reports: None Oncologic Surgical History: Reports: None Dermatological Surgical History: Reports: None Social & Family History - Family History Family Medical History: Noncontributory HEENT: Reports: None Cardiac: Reports: Hypertension, [place] Respiratory: Reports: Asthma GI: Reports: GERD : Reports: None OBGYN: Reports: Ectopic , Musculoskeletal: Reports: Back pain, Chronic, Osteoarthritis Neurological: Reports: Alzheimers Disease Psychiatric: Reports: Abuse, Victim of, Anxiety, Bipolar, Depression, Mood Swings, Panic Attack Endocrine/Metabolic: Reports: Diabetes, type II Hematologic: Reports: Anemia Immunologic: Reports: None Dermatologic: Reports: Eczema Oncologic: Reports: Breast, Skin - Tobacco Use Smoking Status *Q: Current Every Day Smoker Years of Tobacco use: 9 Packs/Tins Daily: 0.5 Used Tobacco, but Quit: No Second Hand Smoke Exposure: Yes - Caffeine Use Caffeine Use: Reports: None - Recreational Drug Use Recreational Drug Use: No ED ROS GENERAL - Review of Systems Review Of Systems: ROS reveals no pertinent complaints other than HPI. ED EXAM, GENERAL - Physical Exam Exam: See Below Exam Limited By: No Limitations General Appearance: Alert, WD/WN, No Apparent Distress Eye Exam: Bilateral Eye: EOMI, Normal Inspection, PERRL Ears: Normal External Exam Nose: Normal Inspection Throat/Mouth: Normal Lips, Other (extensive gum disease with a deeply caried #32 ; multiple teeth caried and missing) Head: Normocephalic Neck: Normal Inspection Respiratory/Chest: Lungs Clear Cardiovascular: Regular Rate, Rhythm Neurological: Alert, Oriented, CN II-XII Intact, No Motor/Sensory Deficits Psychiatric: Normal Affect, Normal Mood Skin Exam: Warm, Dry Lymphatic: No Adenopathy Course - Vital Signs Text/Narrative:: Briana remained stable at the [facility] ED. No meds were administered. Last Recorded V/S: Last Vital Signs Temp 36.6 C 09/26/17 01:10 Pulse 88 09/26/17 01:10 Resp 16 09/26/17 01:10 BP 122/69 09/26/17 01:10 Pulse Ox 98 09/26/17 01:10 Departure - Departure Time of Disposition: 01:24 Disposition: Home, Self-Care 01 Condition: Fair Clinical Impression: Caries involving multiple surfaces of tooth - Discharge Information Referrals: Marky Tovar MD [Primary Care Provider] - - Problem List & Annotations (1) Caries involving multiple surfaces of tooth SNOMED Code(s): 612929847 Code(s): K02.9 - DENTAL CARIES, UNSPECIFIED Status: Acute Current Visit: Yes Annotation/Comment:: I suggested packing cavitation with cotton impregnated with oil of cloves, and Ibuprofen for pain. She needs DDS consultation. - Problem List Review Problem List Initiated/Reviewed/Updated: Yes - Assessment/Plan Plan: Follow up with DDS.
== END 2017-09-26 01:25 | disposition home or self-care (01) ==
LOC: FB.ED 00:59
DX: K02.9 Dental caries, unspecified (principal); I10 Essential (primary) hypertension; F17.210 Nicotine dependence, cigarettes, uncomplicated; Z91.018 Allergy to other foods; Z91.030 Bee allergy status
CPT/HCPCS: 99282

== ENCOUNTER 2018-03-30 20:31 | Emergency (ER) | payer SELFPAY ==
--- NOTE | 2018-03-30 21:08 | EDM.PDOC ---
ED HPI GENERAL MEDICAL PROBLEM - General Stated Complaint: ABDOMINAL PAIN Time Seen by Provider: 03/30/18 20:31 Source of Information: Reports: Patient, Family (MOM) History Limitations: Reports: No Limitations - History of Present Illness INITIAL COMMENTS - FREE TEXT/NARRATIVE: 28 y.o.w.f -[id number] to the ed due to intermittent vag bleed. LNMP 02/18/2018, no bleed now. Her home test was pos. She was seen by her PMD in january.At that time her Urine HCG was neg and she was started on a BC pill. Pt is till interm bleeding, using 1 pad every 4 hours occ. No vag bleed now. No N/V/D or any other acute medical issues. BP 127/86 pulse 128 RR 18 Temp 99.2 Pulse 94% Onset Date: 02/18/18 Onset Time: 18:00 Duration: Week(s): lower abdomen Pain Score (Numeric/FACES): 3 - Related Data Allergies Allergy/AdvReac Type Severity Reaction Status Date / Time nut - unspecified Allergy Itching Verified 03/30/18 21:31 venom-honey bee Allergy Hives Verified 03/30/18 21:31 [bee venom (honey bee)] Home Meds: Home Meds Ibuprofen 600 mg PO Q8H 08/16/17 [History] Sertraline [Zoloft] 100 mg PO DAILY PRN 08/16/17 [History] Past Medical History HEENT History: Reports: None Cardiovascular History: Reports: Hypertension Other Cardiovascular History: Elevated BP when . 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 Neurological History: Reports: Migraines Psychiatric History: Reports: Anxiety, Depression Endocrine/Metabolic History: Reports: None Hematologic History: Reports: None Immunologic History: Reports: None Oncologic (Cancer) History: Reports: None Dermatologic History: Reports: Eczema - Infectious Disease History Infectious Disease History: Reports: Chicken Pox - Past Surgical History Head Surgeries/Procedures: Reports: None HEENT Surgical History: Reports: None Cardiovascular Surgical History: Reports: None GI Surgical History: Reports: None Female Surgical History: Reports: None Endocrine Surgical History: Reports: None Neurological Surgical History: Reports: None Musculoskeletal Surgical History: Reports: None Oncologic Surgical History: Reports: None Dermatological Surgical History: Reports: None Social & Family History - Family History Family Medical History: Noncontributory HEENT: Reports: None Cardiac: Reports: Hypertension, [place] Respiratory: Reports: Asthma GI: Reports: GERD : Reports: None OBGYN: Reports: Ectopic , Musculoskeletal: Reports: Back pain, Chronic, Osteoarthritis Neurological: Reports: Alzheimers Disease Psychiatric: Reports: Abuse, Victim of, Anxiety, Bipolar, Depression, Mood Swings, Panic Attack Endocrine/Metabolic: Reports: Diabetes, type II Hematologic: Reports: Anemia Immunologic: Reports: None Dermatologic: Reports: Eczema Oncologic: Reports: Breast, Skin - Caffeine Use Caffeine Use: Reports: None ED ROS GENERAL - Review of Systems Review Of Systems: See Below Constitutional: Reports: No Symptoms HEENT: Reports: No Symptoms Respiratory: Reports: No Symptoms Cardiovascular: Reports: No Symptoms Endocrine: Reports: No Symptoms GI/Abdominal: Reports: No Symptoms : Reports: No Symptoms Musculoskeletal: Reports: No Symptoms Skin: Reports: No Symptoms Neurological: Reports: No Symptoms Psychiatric: Reports: No Symptoms Hematologic/Lymphatic: Reports: No Symptoms Immunologic: Reports: No Symptoms ED EXAM - Physical Exam Exam: See Below Exam Limited By: No Limitations General Appearance: Alert, WD/WN, Mild Distress Eye Exam: Bilateral Eye: Normal Inspection Ears: Normal External Exam Nose: Normal Inspection Throat/Mouth: Normal Inspection, Normal Lips Head: Atraumatic, Normocephalic Neck: Normal Inspection, Supple, Non-Tender, Full Range of Motion Respiratory/Chest: No Respiratory Distress, Lungs Clear Cardiovascular: Normal Peripheral Pulses GI/Abdominal Exam: Normal Bowel Sounds, Soft Rectal Exam: Deferred (Female) Exam: Deferred for Placenta Previa Heart Tones: Not [place] Movement: Not Appreciated Back Exam: Normal Inspection Extremities: Normal Inspection Neurological: Alert, Oriented, CN II-XII Intact, Normal Cognition, Normal Gait Psychiatric: Anxious, Other (left the examination room severel times) Skin Exam: Warm, Dry, Intact, Pallor Lymphatic: No Adenopathy Course - Vital Signs Text/Narrative:: 28 y.o.w.f -xyxlzrfwuvr-[id number] to the ed due to intermittent vag bleed. LNMP 02/18/2018, no bleed now. Her home test was pos. She was seen by her PMD in january.At that time her Urine HCG was neg and she was started on a BC pill. Pt is till interm bleeding, using 1 pad every 4 hours occ. No vag bleed now. No N/V/D or any other acute medical issues. BP 127/86 pulse 128 RR 18 Temp 99.2 Pulse 94% Pt admitted she was drinking ETOH PE: WNWD W F with intermittant vaginal bleed since january 2018, H/O a pelvic fx Labs: CBC nl ETOH lab draw refused, UDS was neg HCG was 150 UA was neg Imaging: OB US: No fetus in Uterus Impression: Intermittent vag bleed. Intoxicated Tx: pt was drinking water to fill up the bladder for the OB US Reexam: No vag bleed since pt is in the ed, No Pain. Pt refused Pelvic exam. Pulse was 107 on Discharge Plan: D/C with instructions Last Recorded V/S: Last Vital Signs Temp 36.9 C 03/30/18 22:47 Pulse 107 H 03/30/18 22:47 Resp 17 03/30/18 22:47 BP 123/98 H 03/30/18 22:47 Pulse Ox 100 03/30/18 22:47 - Orders/Labs/Meds Orders: Active Orders 24 hr Category Date Time Status OB Ltd 1 or More Fetus [US] Routine Exams 03/30/18 22:43 Taken OB Transvaginal [US] Routine Exams 03/30/18 22:43 Taken DRUG SCREEN, URINE ALERE [URCHEM] Stat Lab 03/30/18 20:47 Ordered UA W/MICROSCOPIC [URIN] Stat Lab 03/30/18 20:47 Ordered Labs: Laboratory Tests 03/30/18 03/30/18 03/30/18 Range/Units 20:47 20:47 21:00 WBC 9.9 (4.5-12.0) X10-3/uL RBC 4.72 (3.23-5.20) x10(6)uL Hgb 14.7 (11.5-15.5) g/dL Hct 43.8 (30.0-51.3) % MCV 92.8 (80-96) fL MCH 31.2 (27.7-33.6) pg MCHC 33.6 (32.2-35.4) g/dL RDW 12.1 (11.5-15.5) % Plt Count 370 H (125-369) X10(3)uL MPV 8.6 (7.4-10.4) fL Neut % (Auto) 59.2 (46-82) % Lymph % (Auto) 33.5 (13-37) % [place] % (Auto) 3.9 L (4-12) % Eos % (Auto) 1 (1.0-5.0) % Baso % (Auto) 3 H (0-2) % Neut # (Auto) 5.9 (1.6-8.3) # Lymph # (Auto) 3.3 (0.6-5.0) # [place] # (Auto) 0.4 (0.0-1.3) # Eos # (Auto) 0.1 (0.0-0.8) # Baso # (Auto) 0.2 (0.0-0.2) # HCG, Quant (<5) mIU/mL Urine Color Yellow (YELLOW) Urine Appearance Clear (CLEAR) Urine pH 7.0 H (5.0-6.5) Ur Specific [place] 1.005 L (1.010-1.025) Urine Protein Negative (NEGATIVE) mg/dL Urine Glucose (UA) Normal (NEGATIVE) mg/dL Urine Ketones Negative (NEGATIVE) mg/dL Urine Occult Blood Negative (NEGATIVE) Urine Nitrite Negative (NEGATIVE) Urine Bilirubin Negative (NEGATIVE) Urine Urobilinogen Normal (NEGATIVE) mg/dL Ur Leukocyte Esterase Negative (NEGATIVE) Urine RBC Not seen (0) Urine WBC 0-5 (0) Ur Squamous Epith Cells Few H (NS,R,O) Urine Bacteria Rare H (NS) Urine Opiates Screen Negative (NEGATIVE) Ur Oxycodone Screen Negative (NEGATIVE) Ur Propoxyphene Screen Negative (NEGATIVE) Ur Barbituates Screen Negative (NEGATIVE) Ur Tricyclics Screen Negative (NEGATIVE) Ur Phencyclidine Scrn Negative (NEGATIVE) Ur Amphetamine Screen Negative (NEGATIVE) Urine MDMA Screen Negative (NEGATIVE) U Benzodiazepines Scrn Negative (NEGATIVE) U Cocaine Metab Screen Negative (NEGATIVE) U Marijuana (THC) Screen Negative (NEGATIVE) 03/30/18 Range/Units 21:00 WBC (4.5-12.0) X10-3/uL RBC (3.23-5.20) x10(6)uL Hgb (11.5-15.5) g/dL Hct (30.0-51.3) % MCV (80-96) fL MCH (27.7-33.6) pg MCHC (32.2-35.4) g/dL RDW (11.5-15.5) % Plt Count (125-369) X10(3)uL MPV (7.4-10.4) fL Neut % (Auto) (46-82) % Lymph % (Auto) (13-37) % [place] % (Auto) (4-12) % Eos % (Auto) (1.0-5.0) % Baso % (Auto) (0-2) % Neut # (Auto) (1.6-8.3) # Lymph # (Auto) (0.6-5.0) # [place] # (Auto) (0.0-1.3) # Eos # (Auto) (0.0-0.8) # Baso # (Auto) (0.0-0.2) # HCG, Quant 150 (<5) mIU/mL Urine Color (YELLOW) Urine Appearance (CLEAR) Urine pH (5.0-6.5) Ur Specific [place] (1.010-1.025) Urine Protein (NEGATIVE) mg/dL Urine Glucose (UA) (NEGATIVE) mg/dL Urine Ketones (NEGATIVE) mg/dL Urine Occult Blood (NEGATIVE) Urine Nitrite (NEGATIVE) Urine Bilirubin (NEGATIVE) Urine Urobilinogen (NEGATIVE) mg/dL Ur Leukocyte Esterase (NEGATIVE) Urine RBC (0) Urine WBC (0) Ur Squamous Epith Cells (NS,R,O) Urine Bacteria (NS) Urine Opiates Screen (NEGATIVE) Ur Oxycodone Screen (NEGATIVE) Ur Propoxyphene Screen (NEGATIVE) Ur Barbituates Screen (NEGATIVE) Ur Tricyclics Screen (NEGATIVE) Ur Phencyclidine Scrn (NEGATIVE) Ur Amphetamine Screen (NEGATIVE) Urine MDMA Screen (NEGATIVE) U Benzodiazepines Scrn (NEGATIVE) U Cocaine Metab Screen (NEGATIVE) U Marijuana (THC) Screen (NEGATIVE) Departure - Departure Time of Disposition: 22:32 Disposition: Home, Self-Care 01 Condition: Good Clinical Impression: Vaginal bleeding in - Discharge Information Instructions: Vaginal Bleeding During , First Trimester Referrals: Marky Tovar MD [Primary Care Provider] - Forms: ED Department Discharge Additional Instructions: Please f/u with your OBGYN a.s.a.p Repear a test in 3-4 days. Please come back if your symptoms get worse acutely - My Orders Last 24 Hours: My Active Orders 03/30/18 20:47 DRUG SCREEN, URINE ALERE [URCHEM] Stat UA W/MICROSCOPIC [URIN] Stat 03/30/18 22:43 OB Ltd 1 or More Fetus [US] Routine OB Transvaginal [US] Routine - Assessment/Plan Last 24 Hours: My Active Orders 03/30/18 20:47 DRUG SCREEN, URINE ALERE [URCHEM] Stat UA W/MICROSCOPIC [URIN] Stat 03/30/18 22:43 OB Ltd 1 or More Fetus [US] Routine OB Transvaginal [US] Routine
[2018-03-30 22:55] VITALS: BP 123/98
--- NOTE | 2018-04-02 15:25 | US ---
INDICATION: First trimester bleeding. ULTRASOUND, OB, TRANSCUTANEOUS AND TRANSVAGINAL: FINDINGS: Transcutaneous and transvaginal OB ultrasounds were obtained. Transvaginal was done to better evaluate for a . The uterus measures 7.1 x 4.1 x 4.6 cm. Endometrium measures 12 mm. No findings of intrauterine . No findings of ectopic . Correlate with laboratory values. Right ovary measures 3.2 x 1.9 x 3.8 cm, and the left ovary measures 2.7 x 1.2 x 1.5 cm. IMPRESSION: 1. No ultrasound findings of intrauterine . No findings of ectopic . Correlate with laboratory values and follow up as indicated. MTDD
== END 2018-03-30 22:47 | disposition home or self-care (01) ==
LOC: FB.ED 20:31
DX: O20.9 Hemorrhage in early pregnancy, unspecified (principal); O16.1 Unspecified maternal hypertension, first trimester; I10 Essential (primary) hypertension; O99.611 Diseases of the digestive system complicating pregnancy, first trimester; K21.9 Gastro-esophageal reflux disease without esophagitis; O99.341 Other mental disorders complicating pregnancy, first trimester; F41.9 Anxiety disorder, unspecified; F32.9 Major depressive disorder, single episode, unspecified; O99.331 Smoking (tobacco) complicating pregnancy, first trimester; F17.200 Nicotine dependence, unspecified, uncomplicated; O99.311 Alcohol use complicating pregnancy, first trimester; F10.129 Alcohol abuse with intoxication, unspecified; Z91.030 Bee allergy status; Z91.018 Allergy to other foods; O24.311 Unspecified pre-existing diabetes mellitus in pregnancy, first trimester; E11.9 Type 2 diabetes mellitus without complications; Z79.899 Other long term (current) drug therapy
CPT/HCPCS: 36415; 76815; 76817; 80305-QW; 81001; 84702; 85025; 99284

== ENCOUNTER 2018-06-26 00:39 | Emergency (ER) | payer MEDICAID ==
[2018-06-26 01:13] VITALS: BP 130/67
[2018-06-26] MEDS ORDERED: Ketorolac 60 MG/2 ML SDV IM ONE (01:50)
--- NOTE | 2018-06-26 01:57 | EDM.PDOC ---
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 Stated Complaint: LOWER ABD PAIN, Time Seen by Provider: 06/26/18 01:40 Source of Information: Reports: Patient History Limitations: Reports: No Limitations - History of Present Illness INITIAL COMMENTS - FREE TEXT/NARRATIVE: c/o acute alcohol intox pt says she is 14-17w gestation, has not made an appointment to see Dr Tovar has pain in her thighs, says it is from a ruptured pubic symphysis from her last pt cannot provide a coherent reason as to why she is acute intoxicated despite being FHT 164 no vaginal bleeding - Related Data Allergies Allergy/AdvReac Type Severity Reaction Status Date / Time nut - unspecified Allergy Itching Verified 06/26/18 01:11 venom-honey bee Allergy Hives Verified 06/26/18 01:11 [bee venom (honey bee)] Home Meds: Home Meds Ibuprofen 600 mg PO Q8H 08/16/17 [History] Past Medical History HEENT History: Reports: None Cardiovascular History: Reports: Hypertension Other Cardiovascular History: Elevated BP when . 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 Neurological History: Reports: Migraines Psychiatric History: Reports: Anxiety, Depression Endocrine/Metabolic History: Reports: None Hematologic History: Reports: None Immunologic History: Reports: None Oncologic (Cancer) History: Reports: None Dermatologic History: Reports: Eczema - Infectious Disease History Infectious Disease History: Reports: Chicken Pox - Past Surgical History Head Surgeries/Procedures: Reports: None HEENT Surgical History: Reports: None Cardiovascular Surgical History: Reports: None GI Surgical History: Reports: None Female Surgical History: Reports: None Endocrine Surgical History: Reports: None Neurological Surgical History: Reports: None Musculoskeletal Surgical History: Reports: None Oncologic Surgical History: Reports: None Dermatological Surgical History: Reports: None Social & Family History - Family History Family Medical History: Noncontributory HEENT: Reports: None Cardiac: Reports: Hypertension, [place] Respiratory: Reports: Asthma GI: Reports: GERD : Reports: None OBGYN: Reports: Ectopic , Musculoskeletal: Reports: Back pain, Chronic, Osteoarthritis Neurological: Reports: Alzheimers Disease Psychiatric: Reports: Abuse, Victim of, Anxiety, Bipolar, Depression, Mood Swings, Panic Attack Endocrine/Metabolic: Reports: Diabetes, type II Hematologic: Reports: Anemia Immunologic: Reports: None Dermatologic: Reports: Eczema Oncologic: Reports: Breast, Skin - Caffeine Use Caffeine Use: Reports: None ED ROS GENERAL - Review of Systems Review Of Systems: See Below Constitutional: Reports: No Symptoms HEENT: Reports: No Symptoms Respiratory: Reports: No Symptoms Cardiovascular: Reports: No Symptoms Endocrine: Reports: No Symptoms GI/Abdominal: Reports: No Symptoms : Reports: No Symptoms Musculoskeletal: Reports: Other (thigh pain) Skin: Reports: No Symptoms Neurological: Reports: No Symptoms Psychiatric: Reports: No Symptoms Hematologic/Lymphatic: Reports: No Symptoms Immunologic: Reports: No Symptoms ED EXAM, GI/ABD - Physical Exam Exam: See Below Exam Limited By: Other (thin, underweight) General Appearance: Other (acute alc intox) Nose: Normal Inspection, Normal Mucosa, No Blood Throat/Mouth: Normal Inspection, Normal Oropharynx, Normal Voice, No Airway Compromise Head: Atraumatic, Normocephalic Neck: Normal Inspection, Supple, Non-Tender, Full Range of Motion Respiratory/Chest: No Respiratory Distress, Lungs Clear, Normal Breath Sounds, No Accessory Muscle Use Cardiovascular: Regular Rate, Rhythm, No Edema, No JVD, No Murmur, No Rub GI/Abdominal Exam: Normal Bowel Sounds, Soft, Non-Tender, No Distention, Other ( fundus 10 cm above PS, PS is not tender to palpation, thighs are not tender to palpation, walks and moves without difficulty) Back Exam: Normal Inspection, Full Range of Motion. No: CVA Tenderness (R), CVA Tenderness (L) Extremities: Normal Inspection, Normal Range of Motion, Non-Tender, No Pedal Edema Neurological: Alert, CN II-XII Intact, Normal Gait, No Motor/Sensory Deficits Psychiatric: Anxious Skin Exam: Warm Lymphatic: No Adenopathy Course - Vital Signs Last Recorded V/S: Last Vital Signs Temp 37.1 C 06/26/18 01:00 Pulse 95 06/26/18 01:00 Resp 17 06/26/18 01:00 BP 130/67 06/26/18 01:00 Pulse Ox 95 06/26/18 01:00 - Orders/Labs/Meds Labs: Laboratory Tests 06/26/18 06/26/18 06/26/18 Range/Units 02:03 02:10 02:10 WBC 10.1 (4.5-12.0) X10-3/uL RBC 3.62 (3.23-5.20) x10(6)uL Hgb 11.6 D (11.5-15.5) g/dL Hct 33.7 D (30.0-51.3) % MCV 93.1 (80-96) fL MCH 32.1 (27.7-33.6) pg MCHC 34.5 (32.2-35.4) g/dL RDW 12.9 (11.5-15.5) % Plt Count 323 (125-369) X10(3)uL MPV 8.5 (7.4-10.4) fL Neut % (Auto) 66.1 (46-82) % Lymph % (Auto) 27.5 (13-37) % [place] % (Auto) 4.4 (4-12) % Eos % (Auto) 2 (1.0-5.0) % Baso % (Auto) 0 (0-2) % Neut # (Auto) 6.7 (1.6-8.3) # Lymph # (Auto) 2.8 (0.6-5.0) # [place] # (Auto) 0.4 (0.0-1.3) # Eos # (Auto) 0.2 (0.0-0.8) # Baso # (Auto) 0.0 (0.0-0.2) # Sodium 142 (135-145) mmol/L Potassium 3.4 L (3.5-5.3) mmol/L Chloride 104 (100-110) mmol/L Carbon Dioxide 25 (21-32) mmol/L BUN 6 L (7-18) mg/dL Creatinine 0.5 L (0.55-1.02) mg/dL Est Cr Clr Drug Dosing TNP Estimated GFR (MDRD) > 60 (>60) BUN/Creatinine Ratio 12.0 (9-20) Glucose 99 (80-116) mg/dL Calcium 8.8 (8.6-10.2) mg/dL Total Bilirubin < 0.1 L (0.1-1.3) mg/dL AST 11 (5-25) IU/L ALT 16 (12-36) U/L Alkaline Phosphatase 53 L (56-112) IU/L Total Protein 7.8 (6.0-8.0) g/dL Albumin 3.6 (3.5-5.2) g/dL Globulin 4.2 g/dL Albumin/Globulin Ratio 0.9 Urine Color Yellow (YELLOW) Urine Appearance Clear (CLEAR) Urine pH 7.0 H (5.0-6.5) Ur Specific [place] 1.005 L (1.010-1.025) Urine Protein Negative (NEGATIVE) mg/dL Urine Glucose (UA) Normal (NEGATIVE) mg/dL Urine Ketones Negative (NEGATIVE) mg/dL Urine Occult Blood Negative (NEGATIVE) Urine Nitrite Negative (NEGATIVE) Urine Bilirubin Negative (NEGATIVE) Urine Urobilinogen Normal (NEGATIVE) mg/dL Ur Leukocyte Esterase Negative (NEGATIVE) Urine RBC 0-5 (0) Urine WBC Not seen (0) Ur Squamous Epith Cells Rare (NS,R,O) Urine Bacteria Rare H (NS) Ethyl Alcohol (<0.03) % 06/26/18 Range/Units 02:10 WBC (4.5-12.0) X10-3/uL RBC (3.23-5.20) x10(6)uL Hgb (11.5-15.5) g/dL Hct (30.0-51.3) % MCV (80-96) fL MCH (27.7-33.6) pg MCHC (32.2-35.4) g/dL RDW (11.5-15.5) % Plt Count (125-369) X10(3)uL MPV (7.4-10.4) fL Neut % (Auto) (46-82) % Lymph % (Auto) (13-37) % [place] % (Auto) (4-12) % Eos % (Auto) (1.0-5.0) % Baso % (Auto) (0-2) % Neut # (Auto) (1.6-8.3) # Lymph # (Auto) (0.6-5.0) # [place] # (Auto) (0.0-1.3) # Eos # (Auto) (0.0-0.8) # Baso # (Auto) (0.0-0.2) # Sodium (135-145) mmol/L Potassium (3.5-5.3) mmol/L Chloride (100-110) mmol/L Carbon Dioxide (21-32) mmol/L BUN (7-18) mg/dL Creatinine (0.55-1.02) mg/dL Est Cr Clr Drug Dosing Estimated GFR (MDRD) (>60) BUN/Creatinine Ratio (9-20) Glucose (80-116) mg/dL Calcium (8.6-10.2) mg/dL Total Bilirubin (0.1-1.3) mg/dL AST (5-25) IU/L ALT (12-36) U/L Alkaline Phosphatase (56-112) IU/L Total Protein (6.0-8.0) g/dL Albumin (3.5-5.2) g/dL Globulin g/dL Albumin/Globulin Ratio Urine Color (YELLOW) Urine Appearance (CLEAR) Urine pH (5.0-6.5) Ur Specific [place] (1.010-1.025) Urine Protein (NEGATIVE) mg/dL Urine Glucose (UA) (NEGATIVE) mg/dL Urine Ketones (NEGATIVE) mg/dL Urine Occult Blood (NEGATIVE) Urine Nitrite (NEGATIVE) Urine Bilirubin (NEGATIVE) Urine Urobilinogen (NEGATIVE) mg/dL Ur Leukocyte Esterase (NEGATIVE) Urine RBC (0) Urine WBC (0) Ur Squamous Epith Cells (NS,R,O) Urine Bacteria (NS) Ethyl Alcohol 0.27 H* (<0.03) % Meds: Medications Discontinued Medications Generic Name Dose Route Start Last Admin Trade Name Freq PRN Reason Stop Dose Admin Ketorolac Tromethamine 60 mg 06/26/18 01:50 Toradol IM 06/26/18 01:51 ONETIME ONE - Re-Assessments/Exams Free Text/Narrative Re-Assessment/Exam: 06/26/18 02:43 labs neg except K 3.4 and ethanol .69 pt states she is taking MVI plus another "supplemental vitamin" pt interviewed with Kena HANNON present, pt concerned re her ruptured pubic ligament, long discussion re using heating pad and APAP pt walking here and has no clinical evidence of discomfort FHT 164, baby appears to be doing well, no threatened miscarriage Departure - Departure Time of Disposition: 02:46 Disposition: Home, Self-Care 01 Condition: Fair Clinical Impression: Sprain, symphysis pubis, Second trimester , Acute alcohol intoxication - Discharge Information *PRESCRIPTION DRUG MONITORING PROGRAM REVIEWED*: Not Applicable *COPY OF PRESCRIPTION DRUG MONITORING REPORT IN PATIENT INDIRA: Not Applicable Instructions: Alcohol Use During Referrals: Marky Tovar MD [Primary Care Provider] - Forms: ED Department Discharge Additional Instructions: Use heating pad or soak in a warm tub several times a day, as needed. For pain, may take acetaminophen 500 mg 2 tabs 4 times a day as needed. Do not drink alcohol when , not even one drink, as this can injure the baby's brain and cause alcohol syndrome. Other then your high alcohol level, your blood and urine tests indicate that the baby is doing well. See Dr Tovar as soon as possible for your initial OB visit.
== END 2018-06-26 03:15 | disposition home or self-care (01) ==
LOC: FB.ED 00:39
DX: O9A.212 Injury, poisoning and certain other consequences of external causes complicating pregnancy, second trimester (principal); S33.8XXA Sprain of other parts of lumbar spine and pelvis, initial encounter; O99.312 Alcohol use complicating pregnancy, second trimester; F10.129 Alcohol abuse with intoxication, unspecified; O10.012 Pre-existing essential hypertension complicating pregnancy, second trimester; Z3A.17 17 weeks gestation of pregnancy; Z91.018 Allergy to other foods; Z91.030 Bee allergy status; Y90.8 Blood alcohol level of 240 mg/100 ml or more; X58.XXXA Exposure to other specified factors, initial encounter
CPT/HCPCS: 36415; 80053; 81001; 85025; 96372; 99283; G0480; J1885

== ENCOUNTER 2018-12-04 06:26 | Inpatient (IN) | payer MEDICAID ==
[~2018-12-04 06:26] MED LIST: Lactated Ringers 1,000 ML IV SCH; Sodium Chloride 0.9% 10 ML Syringe FLUSH PRN
[2018-12-04] MEDS ORDERED: Citric Acid/Sodium Citrate Solution 30 ML Cup PO ONE (07:23)
[2018-12-04] MEDS ORDERED: Scopolamine 1.5 MG Transdermal Patch TRDERM ONE (07:23)
[2018-12-04] MEDS ORDERED: ceFAZolin 1 GM in Sodium Chloride 0.9% 50 ML IV ONE (08:00)
[2018-12-04] MEDS ORDERED: ceFAZolin 1 GM Vial IV ONE (08:00)
[2018-12-04] MEDS ORDERED: Nalbuphine 10 MG/1 ML Vial IVPUSH PRN (09:29)
[2018-12-04] MEDS ORDERED: Naloxone 0.4 MG/ML SDV IVPUSH PRN ×2 (09:29→09:44)
[2018-12-04] MEDS ORDERED: diphenhydrAMINE 50 MG/ML SDV IV PRN ×2 (09:29→10:00)
[2018-12-04] MEDS ORDERED: Ondansetron 4 MG/2 ML SDV IVPUSH PRN (09:29)
[2018-12-04] MEDS: Lactated Ringers 1,000 ML IV SCH ×4 (09:40→21:53)
[2018-12-04] MEDS ORDERED: ePHEDrine 50 MG/ML SDV IVPUSH PRN (09:44)
[2018-12-04] MEDS ORDERED: diphenhydrAMINE 50 MG/ML SDV IVPUSH PRN (09:44)
[2018-12-04] MEDS: Ketorolac 30 MG/ML SDV IVPUSH PRN ×2 (11:46→18:15)
--- NOTE | 2018-12-04 13:43 | OR ---
DATE OF OPERATION: 12/04/2018 SURGEON: Marky Tovar MD PROCEDURE PERFORMED: . CHOIRMASTER: Dr. Rolon ANESTHESIA: Spinal. PREOPERATIVE DIAGNOSES: 1. Term , primary section. 2. Prior cephalopelvic disproportion. POSTOPERATIVE DIAGNOSES: 1. Term , primary section. 2. Prior cephalopelvic disproportion. DESCRIPTION OF PROCEDURE: The patient accepted risks and benefits. She was taken to the OR, where anesthesia was obtained through the spinal. She was prepped in the usual sterile fashion, lying in the dorsal position with leftward tilt. After ascertaining adequate anesthesia, a Pfannenstiel incision was made and carried to the underlying fascia. This was scored in the middle and extended laterally using Lam scissors. Then using Leola clamps, the rectus was bluntly dissected from both inferior and lower portions. The muscles were in the middle. The peritoneum was entered sharply. A bladder blade was inserted, and reflection of the visceral peritoneum around the bladder was made. An incision using scalpel was made in the uterus in the lower uterine segment, carried laterally by traction. The baby's head was delivered, and all the infant came out atraumatically. Cord was cut and clamped. Baby was gently suctioned and handed to the awaiting nurses. After obtaining cord blood, the uterus was exteriorized and the placenta removed by traction. The uterus was then cleaned of all the clots and products of conception, and the incision was closed in 2 layers with no complications of bleeding. Adequate hemostasis was ascertained. After irrigation, the uterus was returned to the abdomen and the rectus fascia was closed with a 0 Vicryl running stitch. Thereafter, the skin was closed with a subcutaneous 3-0 running stitch with no complications. The patient received 1 g of Ancef preop, and the counts for laps, needles, and instruments were correct x3. The product of the was a live male with scores of 9 and 9. The baby and the mother are both stable in the post delivery unit. /[id number] DAVONTE/ROBBIEL
[2018-12-04] MEDS ORDERED: Midazolam 1 MG/ML 2 ML SDV IV ONE (16:29)
[2018-12-04] MEDS ORDERED: ePHEDrine 50 MG/ML SDV IV ONE (16:29)
[2018-12-04] MEDS ORDERED: Oxytocin 10 Units/1 ML SDV IV ONE ×2 (16:29)
[2018-12-04] MEDS ORDERED: Morphine PF 10 MG/10 ML SDV EPIDUR ONE (16:29)
[2018-12-05] MEDS: Ketorolac 30 MG/ML SDV IVPUSH PRN (00:19)
[2018-12-05] MEDS: Lactated Ringers 1,000 ML IV SCH (02:15)
[2018-12-05] MEDS ORDERED: Ibuprofen 600 MG Tab PO PRN (08:28)
--- NOTE | 2018-12-05 08:34 | PCM.PN ---
- General Info Date of Service: 12/05/18 Functional Status: Reports: Pain Controlled - Patient Data Vitals - Most Recent: Last Vital Signs Temp 98.1 F 12/04/18 15:00 Pulse 75 12/04/18 15:00 Resp 16 12/04/18 15:00 BP 105/60 12/04/18 15:00 Pulse Ox 99 12/04/18 15:00 Weight - Most Recent: 62.46 kg I&O - Last 24 Hours: Intake & Output 12/04/18 12/05/18 12/05/18 22:59 06:59 14:59 Intake Total 550 4901 Output Total 1500 2800 Balance -950 2101 Lab Results Last 24 Hours: Laboratory Results - last 24 hr 12/05/18 Range/Units 06:15 WBC 12.4 H (4.5-12.0) X10-3/uL RBC 3.02 L (3.23-5.20) x10(6)uL Hgb 9.3 L (11.5-15.5) g/dL Hct 28.6 L (30.0-51.3) % MCV 94.8 (80-96) fL MCH 30.9 (27.7-33.6) pg MCHC 32.6 (32.2-35.4) g/dL RDW 13.5 (11.5-15.5) % Plt Count 257 (125-369) X10(3)uL MPV 8.7 (7.4-10.4) fL Neut % (Auto) 70.0 (46-82) % Lymph % (Auto) 19.6 (13-37) % Cotton % (Auto) 8.9 (4-12) % Eos % (Auto) 1 (1.0-5.0) % Baso % (Auto) 0 (0-2) % Neut # (Auto) 8.7 H (1.6-8.3) # Lymph # (Auto) 2.4 (0.6-5.0) # Cotton # (Auto) 1.1 (0.0-1.3) # Eos # (Auto) 0.2 (0.0-0.8) # Baso # (Auto) 0.0 (0.0-0.2) # Med Orders - Current: Current Medications Hydrocodone Bitart/Acetaminophen ([place] 325-5 Mg) 1 tab PO Q6H PRN PRN Reason: Pain Diphenhydramine HCl (Benadryl) 25 mg IV ASDIRECTED PRN PRN Reason: Pruritus Ephedrine Sulfate (Ephedrine Sulfate) 5 mg IVPUSH ASDIRECTED PRN PRN Reason: Other Lactated Ringer's (Ringers, Lactated) 1,000 mls @ 125 mls/hr IV ASDIRECTED [facility] Last Infusion: 12/05/18 06:20 Dose: 250 mls/hr Lactated Ringer's (Ringers, Lactated) 1,000 mls @ 250 mls/hr IV ASDIRECTED [facility] Last Admin: 12/05/18 02:15 Dose: 250 mls/hr Ibuprofen (Motrin) 600 mg PO Q6H PRN PRN Reason: Pain Nalbuphine HCl (Nubain) 10 mg IVPUSH Q1H PRN PRN Reason: Pruritus Naloxone HCl (Narcan) 0.1 mg IVPUSH ONETIME PRN PRN Reason: Oversedation Ondansetron HCl (Zofran) 4 mg IVPUSH Q6H PRN PRN Reason: Nausea/Vomiting Sodium Chloride (Saline Flush) 10 ml FLUSH ASDIRECTED PRN PRN Reason: Keep Vein Open Discontinued Medications Cefazolin Sodium (Ancef) 1 gm IV ONETIME ONE Stop: 12/04/18 08:01 Last Admin: 12/04/18 07:42 Dose: 1 gm Citric Acid/Sodium Citrate (Bicitra Solution) 30 ml PO ONETIME ONE Stop: 12/04/18 07:24 Last Admin: 12/04/18 07:42 Dose: 30 ml Diphenhydramine HCl (Benadryl) 25 mg IV ONETIME PRN PRN Reason: Pruritus Diphenhydramine HCl (Benadryl) 25 mg IVPUSH Q6H PRN PRN Reason: Itching or Nausea Cefazolin Sodium 1 gm/ Sodium (Chloride) 50 mls @ 200 mls/hr IV ONETIME ONE Stop: 12/04/18 08:14 Ketorolac Tromethamine (Toradol) 30 mg IVPUSH Q6H PRN PRN Reason: Pain Stop: 12/09/18 11:16 Last Admin: 12/05/18 00:19 Dose: 30 mg Naloxone HCl (Narcan) 0.1 mg IVPUSH ONETIME PRN PRN Reason: Respiratory Depression Scopolamine (Transderm-Scop) 1.5 mg TRDERM ONETIME ONE Stop: 12/04/18 07:24 Last Admin: 12/04/18 07:41 Dose: 1.5 mg - Exam General: Alert, Oriented HEENT: Pupils Equal, Pupils Reactive, EOMI, Mucous Membr. Moist/[place] Neck: Supple Lungs: Clear to Auscultation, Normal Respiratory Effort Cardiovascular: Regular Rate, Regular Rhythm GI/Abdominal Exam: Normal Bowel Sounds, Soft, Non-Tender, No Organomegaly, No Distention, No Abnormal Bruit, No Mass, Pelvis Stable (Female) Exam: Normal External Exam, Normal Speculum Exam, Normal Bimanual Exam Back Exam: Normal Inspection, Full Range of Motion Extremities: Normal Inspection, Normal Range of Motion, Non-Tender, No Pedal Edema, Normal Capillary Refill Skin: Warm, Dry, Intact Wound/Incisions: Healing Well Neurological: No New Focal Deficit Psy/Mental Status: Alert, Normal Affect, Normal Mood - Problem List & Annotations (1) Delivery by elective section SNOMED Code(s): 271572302 Code(s): O82 - ENCOUNTER FOR DELIVERY WITHOUT INDICATION Status: Acute Current Visit: Yes (2) examination following delivery SNOMED Code(s): 150985145, 42603423, 643399652 Code(s): Z39.2 - ENCOUNTER FOR ROUTINE FOLLOW-UP Status: Acute Current Visit: Yes (3) care and examination SNOMED Code(s): 880383225, 845819219 Code(s): Z39.2 - ENCOUNTER FOR ROUTINE FOLLOW-UP Status: Acute Current Visit: No - Problem List Review Problem List Initiated/Reviewed/Updated: Yes - My Orders Last 24 Hours: My Active Orders 12/04/18 08:00 Insert Pope Catheter [Insert Urinary Catheter] [OM.PC] Q24H Urinary Catheter Assessment [RC] QSHIFT 12/04/18 09:44 Communication Order [RC] Per Unit Routine Communication Order [RC] Per Unit Routine Communication Order [RC] Per Unit Routine RT Incentive Spirometry [RC] Q4HWA Vital Signs [RC] PER UNIT ROUTINE ePHEDrine [ePHEDrine sulfate] 5 mg IVPUSH ASDIRECTED PRN 12/04/18 09:45 Lactated Ringers [Ringers, Lactated] 1,000 ml IV ASDIRECTED 12/04/18 19:53 Dressing Change [Wound Care] [RC] ASDIRECTED 12/04/18 Dinner Full Liquid Diet [DIET] 12/05/18 08:26 Remove Pope Catheter [Urinary Catheter Removal] [RC] Per Unit Routine Peripheral IV Discontinue [OM.PC] Routine 12/05/18 08:27 Acetaminophen/HYDROcodone [[place] 325-5 MG] 1 tab PO Q6H PRN 12/05/18 08:28 Ibuprofen [Motrin] 600 mg PO Q6H PRN - Plan Plan:: DC fluids. Advance diet,ambulate.DC pope.NOrco fopr pain.NSAID
[2018-12-05] MEDS: Ibuprofen 600 MG Tab PO SCH ×3 (09:14→21:18)
[2018-12-05] MEDS: Acetaminophen/HYDROcodone 325-5 MG Tab PO PRN ×2 (10:27→17:24)
[2018-12-06] MEDS: Acetaminophen/HYDROcodone 325-5 MG Tab PO PRN ×3 (00:25→19:22)
[2018-12-06] MEDS: Ibuprofen 600 MG Tab PO SCH ×4 (04:00→21:14)
--- NOTE | 2018-12-06 09:11 | PCM.PNPP ---
- General Info Date of Service: 12/06/18 Functional Status: Reports: Pain Controlled - Review of Systems General: Reports: No Symptoms HEENT: Reports: No Symptoms Pulmonary: Reports: No Symptoms Cardiovascular: Reports: No Symptoms Gastrointestinal: Reports: No Symptoms Genitourinary: Reports: No Symptoms Musculoskeletal: Reports: No Symptoms Skin: Reports: No Symptoms Neurological: Reports: No Symptoms Psychiatric: Reports: No Symptoms - General Info Date of Service: 12/06/18 - Patient Data Vital Signs - Most Recent: Last Vital Signs Temp 97.9 F 12/05/18 16:23 Pulse 64 12/06/18 00:27 Resp 16 12/06/18 00:27 BP 119/69 12/06/18 00:27 Pulse Ox 100 12/06/18 00:27 Weight - Most Recent: 62.46 kg Med Orders - Current: Current Medications Hydrocodone Bitart/Acetaminophen ([place] 325-5 Mg) 1 tab PO Q6H PRN PRN Reason: Pain Last Admin: 12/06/18 08:38 Dose: 1 tab Diphenhydramine HCl (Benadryl) 25 mg IV ASDIRECTED PRN PRN Reason: Pruritus Ephedrine Sulfate (Ephedrine Sulfate) 5 mg IVPUSH ASDIRECTED PRN PRN Reason: Other Lactated Ringer's (Ringers, Lactated) 1,000 mls @ 125 mls/hr IV ASDIRECTED [facility] Last Infusion: 12/05/18 06:20 Dose: 250 mls/hr Lactated Ringer's (Ringers, Lactated) 1,000 mls @ 250 mls/hr IV ASDIRECTED [facility] Last Admin: 12/05/18 02:15 Dose: 250 mls/hr Ibuprofen (Motrin) 600 mg PO Q6H [facility] Last Admin: 12/06/18 08:39 Dose: 600 mg Nalbuphine HCl (Nubain) 10 mg IVPUSH Q1H PRN PRN Reason: Pruritus Naloxone HCl (Narcan) 0.1 mg IVPUSH ONETIME PRN PRN Reason: Oversedation Ondansetron HCl (Zofran) 4 mg IVPUSH Q6H PRN PRN Reason: Nausea/Vomiting Sodium Chloride (Saline Flush) 10 ml FLUSH ASDIRECTED PRN PRN Reason: Keep Vein Open Discontinued Medications Cefazolin Sodium (Ancef) 1 gm IV ONETIME ONE Stop: 12/04/18 08:01 Last Admin: 12/04/18 07:42 Dose: 1 gm Citric Acid/Sodium Citrate (Bicitra Solution) 30 ml PO ONETIME ONE Stop: 12/04/18 07:24 Last Admin: 12/04/18 07:42 Dose: 30 ml Diphenhydramine HCl (Benadryl) 25 mg IV ONETIME PRN PRN Reason: Pruritus Diphenhydramine HCl (Benadryl) 25 mg IVPUSH Q6H PRN PRN Reason: Itching or Nausea Cefazolin Sodium 1 gm/ Sodium (Chloride) 50 mls @ 200 mls/hr IV ONETIME ONE Stop: 12/04/18 08:14 Ibuprofen (Motrin) 600 mg PO Q6H PRN PRN Reason: Pain Ketorolac Tromethamine (Toradol) 30 mg IVPUSH Q6H PRN PRN Reason: Pain Stop: 12/09/18 11:16 Last Admin: 12/05/18 00:19 Dose: 30 mg Naloxone HCl (Narcan) 0.1 mg IVPUSH ONETIME PRN PRN Reason: Respiratory Depression Scopolamine (Transderm-Scop) 1.5 mg TRDERM ONETIME ONE Stop: 12/04/18 07:24 Last Admin: 12/04/18 07:41 Dose: 1.5 mg - Infant Interaction Infant Disposition, : in Room with Family Infant Interaction: Holding Infant Support Person: Other (see below) - Recovery Exam Fundal Tone: Firm Fundal Level: 1 Fingerbreadths Above Umbilicus Fundal Placement: Midline Lochia Amount: Small, Moderate Lochia Color: Rubra/Red Perineum Description: Intact, Minimal Bruising/Swelling Episiotomy/Laceration: None Bladder Status: Indwelling Catheter in Place Urinary Elimination: Voided - Exam General: Alert, Oriented HEENT: Pupils Equal Neck: Supple Lungs: Clear to Auscultation, Normal Respiratory Effort Cardiovascular: Regular Rate, Regular Rhythm GI/Abdominal Exam: Normal Bowel Sounds, Soft, Non-Tender, No Organomegaly, No Distention, No Abnormal Bruit, No Mass, Pelvis Stable Extremities: Normal Inspection, Normal Range of Motion, Non-Tender, No Pedal Edema, Normal Capillary Refill Skin: Warm, Dry, Intact Wound/Incisions: Healing Well Neurological: No New Focal Deficit Psy/Mental Status: Alert, Normal Affect, Normal Mood - Problem List & Annotations (1) Delivery by elective section SNOMED Code(s): 145017592 Code(s): O82 - ENCOUNTER FOR DELIVERY WITHOUT INDICATION Status: Acute Current Visit: Yes (2) examination following delivery SNOMED Code(s): 008505971, 11416881, 765769634 Code(s): Z39.2 - ENCOUNTER FOR ROUTINE FOLLOW-UP Status: Acute Current Visit: Yes (3) care and examination SNOMED Code(s): 881900355, 557861063 Code(s): Z39.2 - ENCOUNTER FOR ROUTINE FOLLOW-UP Status: Acute Current Visit: No - Problem List Review Problem List Initiated/Reviewed/Updated: Yes - My Orders Last 24 Hours: My Active Orders 12/05/18 08:26 Remove Ramirez Catheter [Urinary Catheter Removal] [RC] Per Unit Routine Peripheral IV Discontinue [OM.PC] Routine 12/05/18 08:27 Acetaminophen/HYDROcodone [[place] 325-5 MG] 1 tab PO Q6H PRN 12/05/18 09:00 Ibuprofen [Motrin] 600 mg PO Q6H - Plan Plan:: Doing well.
[2018-12-07] MEDS: Ibuprofen 600 MG Tab PO SCH ×3 (03:37→15:24)
[2018-12-07] MEDS: Acetaminophen/HYDROcodone 325-5 MG Tab PO PRN ×2 (06:49→13:23)
--- NOTE | 2018-12-07 08:33 | PCM.PN ---
- General Info Date of Service: 12/07/18 Subjective Update: Patient is postop C/section day 3. she is feeling tired. she reports pain is well controlled. has BM yesterday. denies SOB, CP or dysuria. Patient is the baby. - Review of Systems General: Reports: No Symptoms, Fatigue HEENT: Reports: No Symptoms Pulmonary: Reports: No Symptoms Cardiovascular: Reports: No Symptoms Gastrointestinal: Reports: No Symptoms Genitourinary: Reports: No Symptoms Musculoskeletal: Reports: No Symptoms Skin: Reports: No Symptoms Neurological: Reports: No Symptoms Psychiatric: Reports: Depression - Patient Data Vitals - Most Recent: Last Vital Signs Temp 36.7 C 12/06/18 08:00 Pulse 77 12/06/18 08:00 Resp 16 12/06/18 08:00 BP 144/89 H 12/06/18 08:00 Pulse Ox 100 12/06/18 08:00 Weight - Most Recent: 62.46 kg Med Orders - Current: Current Medications Hydrocodone Bitart/Acetaminophen ([place] 325-5 Mg) 1 tab PO Q6H PRN PRN Reason: Pain Last Admin: 12/07/18 06:49 Dose: 1 tab Ibuprofen (Motrin) 600 mg PO Q6H [facility] Last Admin: 12/07/18 03:37 Dose: 600 mg Discontinued Medications Cefazolin Sodium (Ancef) 1 gm IV ONETIME ONE Stop: 12/04/18 08:01 Last Admin: 12/04/18 07:42 Dose: 1 gm Citric Acid/Sodium Citrate (Bicitra Solution) 30 ml PO ONETIME ONE Stop: 12/04/18 07:24 Last Admin: 12/04/18 07:42 Dose: 30 ml Diphenhydramine HCl (Benadryl) 25 mg IV ONETIME PRN PRN Reason: Pruritus Diphenhydramine HCl (Benadryl) 25 mg IV ASDIRECTED PRN PRN Reason: Pruritus Diphenhydramine HCl (Benadryl) 25 mg IVPUSH Q6H PRN PRN Reason: Itching or Nausea Ephedrine Sulfate (Ephedrine Sulfate) 5 mg IVPUSH ASDIRECTED PRN PRN Reason: Other Cefazolin Sodium 1 gm/ Sodium (Chloride) 50 mls @ 200 mls/hr IV ONETIME ONE Stop: 12/04/18 08:14 Lactated Ringer's (Ringers, Lactated) 1,000 mls @ 125 mls/hr IV ASDIRECTED [facility] Last Infusion: 12/05/18 06:20 Dose: 250 mls/hr Lactated Ringer's (Ringers, Lactated) 1,000 mls @ 250 mls/hr IV ASDIRECTED [facility] Last Admin: 12/05/18 02:15 Dose: 250 mls/hr Ibuprofen (Motrin) 600 mg PO Q6H PRN PRN Reason: Pain Ketorolac Tromethamine (Toradol) 30 mg IVPUSH Q6H PRN PRN Reason: Pain Stop: 12/09/18 11:16 Last Admin: 12/05/18 00:19 Dose: 30 mg Nalbuphine HCl (Nubain) 10 mg IVPUSH Q1H PRN PRN Reason: Pruritus Naloxone HCl (Narcan) 0.1 mg IVPUSH ONETIME PRN PRN Reason: Oversedation Naloxone HCl (Narcan) 0.1 mg IVPUSH ONETIME PRN PRN Reason: Respiratory Depression Ondansetron HCl (Zofran) 4 mg IVPUSH Q6H PRN PRN Reason: Nausea/Vomiting Scopolamine (Transderm-Scop) 1.5 mg TRDERM ONETIME ONE Stop: 12/04/18 07:24 Last Admin: 12/04/18 07:41 Dose: 1.5 mg Sodium Chloride (Saline Flush) 10 ml FLUSH ASDIRECTED PRN PRN Reason: Keep Vein Open - Problem List & Annotations (1) Delivery by elective section SNOMED Code(s): 861188581 Code(s): O82 - ENCOUNTER FOR DELIVERY WITHOUT INDICATION Status: Acute Current Visit: Yes - Problem List Review Problem List Initiated/Reviewed/Updated: Yes - Plan Plan:: Patient is s/p primary day 3. she is doing well. will discharge her home today. continue pain medication prn and stool softener. PCP appointment in one week as the patient is high risk of depression
--- NOTE | 2018-12-07 08:42 | PCM.DCSUM1 ---
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 Patient is doing well. no complication after surgery. Patient discharge home in medical stable condition. follow up with PCP in a week. Modified [place] Scale: Sev.Disablility Bedridden,Incont.&Require Constant Nrsg.Care/Attention Modified [place] Scale Score: 5 - Discharge Data Discharge Date: 12/07/18 Discharge Disposition: Home, Self-Care 01 Condition: Good - Discharge Diagnosis/Problem(s) (1) Delivery by elective section SNOMED Code(s): 746728964 ICD Code: O82 - ENCOUNTER FOR DELIVERY WITHOUT INDICATION Status: Acute Current Visit: Yes (2) S/P SNOMED Code(s): 778046151, 504154181 ICD Code: Z98.891 - HISTORY OF UTERINE SCAR FROM PREVIOUS SURGERY Status: Acute Current Visit: Yes - Patient Instructions Diet: Regular Diet as Tolerated - Discharge Plan Home Medications: Home Meds Acetaminophen [Tylenol Extra Strength] 500 mg PO Q4HR PRN 12/03/18 [History] Pnv No.121/Iron/Folic Acid [ Multivitamin Tablet] 1 tab PO DAILY [History] Oxygen Therapy Mode: Room Air Patient Handouts: Coping with Quitting Smoking, Depression, Baby Blues, Delivery, Care After, Home Care Instructions for Mom, Care After Delivery, Steps to Quit Smoking, Hand Washing - Discharge Summary/Plan Comment DC Time >30 min.: Yes - General Info Date of Service: 12/07/18 - Review of Systems General: Reports: No Symptoms, Fatigue HEENT: Reports: No Symptoms Pulmonary: Reports: No Symptoms Cardiovascular: Reports: No Symptoms Gastrointestinal: Reports: No Symptoms Genitourinary: Reports: No Symptoms Musculoskeletal: Reports: No Symptoms Neurological: Reports: No Symptoms Psychiatric: Reports: Depression - Patient Data Vitals - Most Recent: Last Vital Signs Temp 36.7 C 12/06/18 08:00 Pulse 77 12/06/18 08:00 Resp 16 12/06/18 08:00 BP 144/89 H 12/06/18 08:00 Pulse Ox 100 12/06/18 08:00 Weight - Most Recent: 62.46 kg Med Orders - Current: Current Medications Hydrocodone Bitart/Acetaminophen ([place] 325-5 Mg) 1 tab PO Q6H PRN PRN Reason: Pain Last Admin: 12/07/18 06:49 Dose: 1 tab Ibuprofen (Motrin) 600 mg PO Q6H [facility] Last Admin: 12/07/18 03:37 Dose: 600 mg Discontinued Medications Cefazolin Sodium (Ancef) 1 gm IV ONETIME ONE Stop: 12/04/18 08:01 Last Admin: 12/04/18 07:42 Dose: 1 gm Citric Acid/Sodium Citrate (Bicitra Solution) 30 ml PO ONETIME ONE Stop: 12/04/18 07:24 Last Admin: 12/04/18 07:42 Dose: 30 ml Diphenhydramine HCl (Benadryl) 25 mg IV ONETIME PRN PRN Reason: Pruritus Diphenhydramine HCl (Benadryl) 25 mg IV ASDIRECTED PRN PRN Reason: Pruritus Diphenhydramine HCl (Benadryl) 25 mg IVPUSH Q6H PRN PRN Reason: Itching or Nausea Ephedrine Sulfate (Ephedrine Sulfate) 5 mg IVPUSH ASDIRECTED PRN PRN Reason: Other Cefazolin Sodium 1 gm/ Sodium (Chloride) 50 mls @ 200 mls/hr IV ONETIME ONE Stop: 12/04/18 08:14 Lactated Ringer's (Ringers, Lactated) 1,000 mls @ 125 mls/hr IV ASDIRECTED [facility] Last Infusion: 12/05/18 06:20 Dose: 250 mls/hr Lactated Ringer's (Ringers, Lactated) 1,000 mls @ 250 mls/hr IV ASDIRECTED [facility] Last Admin: 12/05/18 02:15 Dose: 250 mls/hr Ibuprofen (Motrin) 600 mg PO Q6H PRN PRN Reason: Pain Ketorolac Tromethamine (Toradol) 30 mg IVPUSH Q6H PRN PRN Reason: Pain Stop: 12/09/18 11:16 Last Admin: 12/05/18 00:19 Dose: 30 mg Nalbuphine HCl (Nubain) 10 mg IVPUSH Q1H PRN PRN Reason: Pruritus Naloxone HCl (Narcan) 0.1 mg IVPUSH ONETIME PRN PRN Reason: Oversedation Naloxone HCl (Narcan) 0.1 mg IVPUSH ONETIME PRN PRN Reason: Respiratory Depression Ondansetron HCl (Zofran) 4 mg IVPUSH Q6H PRN PRN Reason: Nausea/Vomiting Scopolamine (Transderm-Scop) 1.5 mg TRDERM ONETIME ONE Stop: 12/04/18 07:24 Last Admin: 12/04/18 07:41 Dose: 1.5 mg Sodium Chloride (Saline Flush) 10 ml FLUSH ASDIRECTED PRN PRN Reason: Keep Vein Open - Exam General: Reports: Alert, Oriented, Cooperative HEENT: Reports: Pupils Equal, Pupils Reactive Neck: Reports: Supple Lungs: Reports: Clear to Auscultation, Normal Respiratory Effort Cardiovascular: Reports: Regular Rate, Regular Rhythm GI/Abdominal Exam: Normal Bowel Sounds, Soft, Non-Tender (Female) Exam: Normal External Exam, Normal Speculum Exam Extremities: Normal Inspection, Normal Range of Motion Neurological: Reports: No New Focal Deficit Psy/Mental Status: Reports: Alert, Normal Affect
[2018-12-07 10:40] VITALS: BP 116/83
== END 2018-12-07 16:30 | disposition home or self-care (01) | DRG 788 ==
LOC: FB.OB 06:26
PROVIDERS: ADMIT Family Medicine; ATTEND Family Medicine
PROC: 6A550ZT Pheresis of Cord Blood Stem Cells, Single (ICD-10-PCS; principal; 2018-12-04)
PROC: 10D00Z1 Extraction of Products of Conception, Low, Open Approach (ICD-10-PCS; principal; 2018-12-04)
DX: O99.334 Smoking (tobacco) complicating childbirth (principal); O99.324 Drug use complicating childbirth; F17.210 Nicotine dependence, cigarettes, uncomplicated; F41.9 Anxiety disorder, unspecified; O99.344 Other mental disorders complicating childbirth; F32.9 Major depressive disorder, single episode, unspecified; Z3A.39 39 weeks gestation of pregnancy; Z37.0 Single live birth
CPT/HCPCS: 36415; 85025; 86850; 86900; 86901; 88307; A9270-GY; J0690; J1885; J2250; J2270; J2590; J7120

== ENCOUNTER 2019-05-31 11:04 | Emergency (ER) | payer SELFPAY ==
--- NOTE | 2019-05-31 11:28 | EDM.PDOC ---
ED HPI GENERAL MEDICAL PROBLEM - General Chief Complaint: Lower Extremity Injury/Pain Stated Complaint: INJURED ANKLE Time Seen by Provider: 05/31/19 11:25 Source of Information: Reports: Patient History Limitations: Reports: No Limitations - History of Present Illness INITIAL COMMENTS - FREE TEXT/NARRATIVE: 29-year-old female who reports at midnight on Friday morning, 05/30/2019, she was walking to her car to get some warm [place] and she stepped in a hole, twisting her left ankle and falling. She also hit her left elbow but she has really no pain in the left elbow but she does have pain in her left ankle and lower leg. She has been minimally ambulatory with crutches but has pain and swelling in the ankle which has not improved. She reports the pain as a 6/10. It is sharp and shooting pain when she tries to bear weight on it. The pain does seem to radiate up her lower leg. She has some tingling in the toes. There is no open wound. There are no other associated signs or symptoms. There are no other modifying factors. Onset: Other (Midnight on 05/30/2019.) Duration: Constant Location: Reports: Lower Extremity, Left (Ankle and lower leg) Quality: Reports: Ache, Sharp (And shooting) Severity: Moderate Improves with: Reports: Immobilization, Rest Worsens with: Reports: Other (Palpation and trying to bear weight.), Movement Context: Reports: Activity (As described above) Associated Symptoms: Reports: No Other Symptoms Treatments DIE FINISHER: Reports: Acetaminophen, NSAIDS L ankle Pain Score (Numeric/FACES): 6 - Related Data Allergies Allergy/AdvReac Type Severity Reaction Status Date / Time nut - unspecified Allergy Itching Verified 05/31/19 11:09 venom-honey bee Allergy Hives Verified 05/31/19 11:09 [bee venom (honey bee)] Home Meds: Home Meds Acetaminophen [Tylenol Extra Strength] 1,000 mg PO Q4HR PRN 12/03/18 [History] Pnv No.121/Iron/Folic Acid [ Multivitamin Tablet] 1 tab PO DAILY [History] Ibuprofen [Advil] 400 mg PO Q6H PRN 05/31/19 [History] Past Medical History Cardiovascular History: Reports: Other (See Below) Other Cardiovascular History: TRANSIENT HTN OF Respiratory History: Reports: Bronchitis, Recurrent Gastrointestinal History: Reports: GERD Genitourinary History: Reports: Other (See Below) Other Genitourinary History: RUPTURED PUBIC SYMPHYSIS ON 12/2016 DURING VAGINAL DELIVERY Other Musculoskeletal History: CHRONIC SHOULDER PAIN. Neurological History: Reports: Migraines Psychiatric History: Reports: Depression Endocrine/Metabolic History: Reports: None Dermatologic History: Reports: Eczema - Infectious Disease History Infectious Disease History: Reports: Chicken Pox - Past Surgical History Female Surgical History: Reports: Section Social & Family History - Family History HEENT: Reports: None Cardiac: Reports: Hypertension, [place] Respiratory: Reports: Asthma GI: Reports: GERD : Reports: None OBGYN: Reports: Ectopic , Musculoskeletal: Reports: Back pain, Chronic, Osteoarthritis Neurological: Reports: Alzheimers Disease Psychiatric: Reports: Abuse, Victim of, Anxiety, Bipolar, Depression, Mood Swings, Panic Attack Endocrine/Metabolic: Reports: Diabetes, type II Hematologic: Reports: Anemia Immunologic: Reports: None Dermatologic: Reports: Eczema Oncologic: Reports: Breast, Skin - Tobacco Use Smoking Status *Q: Current Every Day Smoker - Caffeine Use Caffeine Use: Reports: Coffee Other Caffeine Use: 4 CUPS - Living Situation & Occupation Occupation: Employed (Works at [employer].) Review of Systems - Review of Systems Review Of Systems: See Below Constitutional: Reports: No Symptoms Eyes: Reports: No Symptoms Ears: Reports: No Symptoms Nose: Reports: No Symptoms Mouth/Throat: Reports: Loose Teeth Respiratory: Reports: Cough. Denies: Shortness of Breath Cardiovascular: Reports: No Symptoms GI/Abdominal: Reports: No Symptoms Genitourinary: Reports: Vaginal Bleeding (On her menstrual period now) Musculoskeletal: Reports: Leg Pain (Left lower leg), Foot Pain (Left ankle) Skin: Reports: Bruising (Over ankle and distal left lower leg) Neurological: Reports: No Symptoms ED EXAM, GENERAL - Physical Exam Exam: See Below Exam Limited By: No Limitations General Appearance: Alert, WD/WN, Mild Distress Eye Exam: Bilateral Eye: EOMI, Normal Inspection, PERRL Ears: Normal External Exam, Hearing Grossly Normal Ear Exam: Bilateral Ear: Auricle Normal Nose: Normal Inspection, Normal Mucosa, No Blood Throat/Mouth: Normal Inspection, Normal Oropharynx, Normal Voice, No Airway Compromise Head: Atraumatic, Normocephalic Neck: Normal Inspection, Supple, Non-Tender, Full Range of Motion Respiratory/Chest: No Respiratory Distress, Lungs Clear, Normal Breath Sounds, No Accessory Muscle Use, Chest Non-Tender Cardiovascular: Normal Peripheral Pulses, Regular Rate, Rhythm, No Murmur Peripheral Pulses: 2+: Radial (L), Radial (R), Dorsalis Pedis (L), Dorsalis Pedis (R) GI/Abdominal: Normal Bowel Sounds, Soft, Non-Tender, No Mass Back Exam: Normal Inspection Extremities: Normal Inspection, Normal Range of Motion, Normal Capillary Refill , Other (Tender over left ankle and left lower leg. There is no crepitus.) Neurological: Alert, Oriented, CN II-XII Intact, Normal Cognition, No Motor/ Sensory Deficits Skin Exam: Warm, Dry, Intact, No Rash, Ecchymosis (Around left ankle) Course - Vital Signs Last Recorded V/S: Last Vital Signs Temp 36.6 C 05/31/19 11:08 Pulse 88 05/31/19 11:08 Resp 18 05/31/19 11:08 BP 120/97 H 05/31/19 11:08 Pulse Ox 100 05/31/19 11:08 - Orders/Labs/Meds Orders: Active Orders 24 hr Category Date Time Status Ankle Min 3V Lt [CR] Stat Exams 05/31/19 11:35 Taken Tibia Fibula Lt [CR] Stat Exams 05/31/19 11:34 Taken - Radiology Interpretation Free Text/Narrative:: X-ray of left ankle shows no fracture or malalignment. X-ray of left tib-fib shows no fracture. - Re-Assessments/Exams Free Text/Narrative Re-Assessment/Exam: 05/31/19 12:24: X-rays of her left ankle and lower leg show no definite fracture. She appears to have a moderate sprain of her left ankle. We will apply an Aircast and she can use the crutches for the next few days with no to minimal weightbearing on her left leg with dressing weightbearing as tolerated with the Aircast. She should continue to take ibuprofen and Tylenol as needed for pain. She should apply ice packs intermittently to the left ankle. She was advised to follow-up with an orthopedic doctor as needed. Departure - Departure Time of Disposition: 12:30 Disposition: Home, Self-Care 01 Condition: Good (Stable) Clinical Impression: Moderate left ankle sprain Qualifiers: Encounter type: initial encounter Qualified Code(s): S93.402A - Sprain of unspecified ligament of left ankle, initial encounter - Discharge Information Instructions: Ankle Sprain, [id number] Referrals: Marky Tovar MD [Primary Care Provider] - Forms: ED Department Discharge Additional Instructions: The x-rays of your left ankle and lower leg show no definite fracture. The radiologist will review the x-rays and if a fracture is seen by him or her, we will call you. Use the Aircast for comfort and support when you are up and about. Use crutches with no weightbearing for the next few days and then begin bearing weight as tolerated on your left foot following this. Apply ice packs intermittently to the left ankle for the next few days. You may take Tylenol and ibuprofen as needed for pain. Follow-up with your primary doctor or an orthopedist as needed. Back to the emergency department for signs of infection, redness, increased swelling or any other concerning sign or symptom. - My Orders Last 24 Hours: My Active Orders 05/31/19 11:34 Tibia Fibula Lt [CR] Stat 05/31/19 11:35 Ankle Min 3V Lt [CR] Stat - Assessment/Plan Last 24 Hours: My Active Orders 05/31/19 11:34 Tibia Fibula Lt [CR] Stat 05/31/19 11:35 Ankle Min 3V Lt [CR] Stat
[2019-05-31 12:54] VITALS: BP 116/77
--- NOTE | 2019-06-01 11:06 | CR ---
INDICATION: Rolled ankle, lateral pain. LEFT ANKLE: Three views of the left ankle were obtained 05/31/19 and revealed soft tissue swelling overlying the lateral malleolus. However, a fracture, dislocation, or other significant bone or joint abnormality was not identified, with the ankle mortise appearing intact. ADEOLAD
--- NOTE | 2019-06-01 11:08 | CR ---
INDICATION: Left ankle and lower leg pain, status post injury. LEFT TIBIA/FIBULA: Frontal and lateral views of the left tibia and fibula revealed no evidence of a fracture, dislocation, or other definite bone or joint abnormality. There is noted soft tissue swelling overlying the lateral malleolus. MTDD
== END 2019-05-31 12:45 | disposition home or self-care (01) ==
LOC: FB.ED 11:04
DX: S93.402A Sprain of unspecified ligament of left ankle, initial encounter (principal); F17.200 Nicotine dependence, unspecified, uncomplicated; Z91.030 Bee allergy status; Z91.018 Allergy to other foods; Z79.899 Other long term (current) drug therapy; W18.31XA Fall on same level due to stepping on an object, initial encounter
CPT/HCPCS: 73590-LT; 73610-LT; 99283-25

== ENCOUNTER 2019-08-16 21:38 | Emergency (ER) | payer SELFPAY ==
[2019-08-16] MEDS ORDERED: Acetaminophen 500 MG Tab PO ONE (22:56)
--- NOTE | 2019-08-17 00:07 | EDM.PDOC ---
ED HPI GENERAL MEDICAL PROBLEM - General Stated Complaint: RIB PAIN Time Seen by Provider: 08/16/19 23:40 Source of Information: Reports: Patient - History of Present Illness INITIAL COMMENTS - FREE TEXT/NARRATIVE: Patient presented to the ED because of rt rib pain. She fell on her right rib 1 week ago and now c/o right sided rib pain,sharp,7/10 and worse with breathing. - Related Data Allergies Allergy/AdvReac Type Severity Reaction Status Date / Time nut - unspecified Allergy Itching Verified 05/31/19 11:09 venom-honey bee Allergy Hives Verified 05/31/19 11:09 [bee venom (honey bee)] Home Meds: Home Meds Acetaminophen [Tylenol Extra Strength] 1,000 mg PO Q4HR PRN 12/03/18 [History] Pnv No.121/Iron/Folic Acid [ Multivitamin Tablet] 1 tab PO DAILY [History] Ibuprofen [Advil] 400 mg PO Q6H PRN 05/31/19 [History] Past Medical History HEENT History: Reports: None Cardiovascular History: Reports: Other (See Below) Other Cardiovascular History: TRANSIENT HTN OF Respiratory History: Reports: Bronchitis, Recurrent Gastrointestinal History: Reports: GERD Genitourinary History: Reports: Other (See Below) Other Genitourinary History: RUPTURED PUBIC SYMPHYSIS ON 12/2016 DURING VAGINAL DELIVERY 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 Neurological History: Reports: Migraines Psychiatric History: Reports: Depression Endocrine/Metabolic History: Reports: None Hematologic History: Reports: None Immunologic History: Reports: None Oncologic (Cancer) History: Reports: None Dermatologic History: Reports: Eczema - Infectious Disease History Infectious Disease History: Reports: Chicken Pox - Past Surgical History Female Surgical History: Reports: Section Social & Family History - Family History Family Medical History: Noncontributory HEENT: Reports: None Cardiac: Reports: Hypertension, [place] Respiratory: Reports: Asthma GI: Reports: GERD : Reports: None OBGYN: Reports: Ectopic , Musculoskeletal: Reports: Back pain, Chronic, Osteoarthritis Neurological: Reports: Alzheimers Disease Psychiatric: Reports: Abuse, Victim of, Anxiety, Bipolar, Depression, Mood Swings, Panic Attack Endocrine/Metabolic: Reports: Diabetes, type II Hematologic: Reports: Anemia Immunologic: Reports: None Dermatologic: Reports: Eczema Oncologic: Reports: Breast, Skin - Caffeine Use Caffeine Use: Reports: Coffee Other Caffeine Use: 4 CUPS - Living Situation & Occupation Occupation: Employed (Works at [employer]) ED ROS GENERAL - Review of Systems Review Of Systems: See Below Constitutional: Reports: No Symptoms HEENT: Reports: No Symptoms Respiratory: Reports: No Symptoms Cardiovascular: Reports: No Symptoms Endocrine: Reports: No Symptoms GI/Abdominal: Reports: No Symptoms : Reports: No Symptoms Musculoskeletal: Reports: Muscle Stiffness Skin: Reports: No Symptoms Neurological: Reports: No Symptoms ED EXAM, GENERAL - Physical Exam Exam: See Below Exam Limited By: No Limitations General Appearance: Alert, WD/WN, No Apparent Distress Ears: Normal External Exam, Normal Canal Nose: Normal Inspection, Normal Mucosa, No Blood Throat/Mouth: Normal Inspection, Normal Lips, Normal Teeth, Normal Gums Head: Atraumatic, Normocephalic Neck: Normal Inspection, Supple, Non-Tender, Full Range of Motion Respiratory/Chest: No Respiratory Distress, Lungs Clear, Normal Breath Sounds, No Accessory Muscle Use Cardiovascular: Normal Peripheral Pulses, Regular Rate, Rhythm, No Edema, No Gallop, No Murmur GI/Abdominal: Normal Bowel Sounds, Soft, Non-Tender, No Organomegaly Back Exam: Other (tenderness right rib area.) Extremities: Normal Inspection, Normal Range of Motion Course - Vital Signs Text/Narrative:: CXR and right rib xray-neg patient took ibuprofen 800 mg prior to her ER visit tylenol 1000 mg po x1 dose - Orders/Labs/Meds Orders: Active Orders 24 hr Category Date Time Status Ribs 2V w Chest Rt [CR] Stat Exams 08/16/19 22:55 Taken Meds: Medications Discontinued Medications Generic Name Dose Route Start Last Admin Trade Name Freq PRN Reason Stop Dose Admin Acetaminophen 1,000 mg 08/16/19 22:56 08/16/19 23:20 Tylenol Extra Strength PO 08/16/19 22:57 1,000 mg ONETIME ONE Administration Departure - Departure Time of Disposition: 00:05 Disposition: Home, Self-Care 01 Condition: Good Clinical Impression: Contusion of rib on right side - Discharge Information Instructions: Chest Contusion, Adult Referrals: Marky Tovar MD [Primary Care Provider] - Additional Instructions: bonnie read discharge instructions on chest and rib contusion apply ice or heat take ibuprofen 800 mg with tylenol 1000 mg every 8 hours as needed for pain. Take the ibuprofen and tylenol at the same time for better pain relief Follow up as needed - My Orders Last 24 Hours: My Active Orders 08/16/19 22:55 Ribs 2V w Chest Rt [CR] Stat - Assessment/Plan Last 24 Hours: My Active Orders 08/16/19 22:55 Ribs 2V w Chest Rt [CR] Stat
[2019-08-22 02:55] VITALS: BP 104/62; PULSE 72
== END 2019-08-17 00:25 | disposition home or self-care (01) ==
LOC: FB.ED 21:38
DX: S20.221A Contusion of right back wall of thorax, initial encounter (principal); Z91.018 Allergy to other foods; Z91.030 Bee allergy status; W19.XXXA Unspecified fall, initial encounter
CPT/HCPCS: 71101; 99282; 99283; A9270

== ENCOUNTER 2020-04-05 00:30 | Emergency (ER) | payer SELFPAY ==
[2020-04-05] MEDS ORDERED: Codeine/guaiFENesin 10-100 MG/5 ML Syrup 5 ML Cup PO ONE (00:56)
[2020-04-05 00:57] VITALS: BP 117/89; PULSE 121
[2020-04-05] MEDS ORDERED: Codeine/guaiFENesin 100mg-10 MG/5 ML Soln 118 ML Bottle PO ONE (01:02)
--- NOTE | 2020-04-05 02:17 | EDM.PDOC ---
ED HPI GENERAL MEDICAL PROBLEM - General Chief Complaint: Respiratory Problem Time Seen by Provider: 04/05/20 01:00 Source of Information: Reports: Patient History Limitations: Reports: No Limitations - History of Present Illness INITIAL COMMENTS - FREE TEXT/NARRATIVE: Patient presented to the ED because of cough and cold x 2 days without any fever. She ois afraid that she has COVID because of a questionable exposure. There is no associated headache,sore throat, N/V/D. Treatments FIELD ASSISTANT: Reports: Other (see below) Other Treatments FIELD ASSISTANT: see triage assessment Generalized Pain Score (Numeric/FACES): 4 - Related Data Allergies Allergy/AdvReac Type Severity Reaction Status Date / Time nut - unspecified Allergy Face Verified 08/22/19 01:11 swells Throat closes venom-honey bee Allergy Hives Verified 08/22/19 01:11 [bee venom (honey bee)] Home Meds: Home Meds Acetaminophen [Tylenol Extra Strength] 1,000 mg PO Q4HR PRN 12/03/18 [History] Pnv No.121/Iron/Folic Acid [ Multivitamin Tablet] 1 tab PO DAILY 9 [History] Ibuprofen [Advil] 400 mg PO Q6H PRN 05/31/19 [History] Potassium Chloride [Klor-Con M20] 40 meq PO TID #6 tab.er.prt 04/05/20 [Rx] Past Medical History HEENT History: Reports: None Cardiovascular History: Reports: Other (See Below) Other Cardiovascular History: TRANSIENT HTN OF Respiratory History: Reports: Bronchitis, Recurrent Gastrointestinal History: Reports: GERD Genitourinary History: Reports: Other (See Below) Other Genitourinary History: RUPTURED PUBIC SYMPHYSIS ON 12/2016 DURING VAGINAL DELIVERY 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 Neurological History: Reports: Migraines Psychiatric History: Reports: Depression Endocrine/Metabolic History: Reports: None Hematologic History: Reports: None Immunologic History: Reports: None Oncologic (Cancer) History: Reports: None Dermatologic History: Reports: Eczema - Infectious Disease History Infectious Disease History: Reports: Chicken Pox - Past Surgical History Head Surgeries/Procedures: Reports: None Female Surgical History: Reports: Section Social & Family History - Family History Family Medical History: Noncontributory HEENT: Reports: None Cardiac: Reports: Hypertension, [place] Respiratory: Reports: Asthma GI: Reports: GERD : Reports: None OBGYN: Reports: Ectopic , Musculoskeletal: Reports: Back pain, Chronic, Osteoarthritis Neurological: Reports: Alzheimers Disease Psychiatric: Reports: Abuse, Victim of, Anxiety, Bipolar, Depression, Mood Swings, Panic Attack Endocrine/Metabolic: Reports: Diabetes, type II Hematologic: Reports: Anemia Immunologic: Reports: None Dermatologic: Reports: Eczema Oncologic: Reports: Breast, Skin - Tobacco Use Smoking Status *Q: Current Every Day Smoker Years of Tobacco use: 15 Packs/Tins Daily: 0.2 - Caffeine Use Caffeine Use: Reports: Coffee Other Caffeine Use: 4 CUPS - Living Situation & Occupation Occupation: Employed (Works at [employer]) ED ROS GENERAL - Review of Systems Review Of Systems: See Below Constitutional: Reports: No Symptoms HEENT: Reports: No Symptoms Respiratory: Reports: Cough Cardiovascular: Reports: No Symptoms Endocrine: Reports: No Symptoms GI/Abdominal: Reports: No Symptoms : Reports: No Symptoms Musculoskeletal: Reports: No Symptoms Skin: Reports: No Symptoms ED EXAM, GENERAL - Physical Exam Exam: See Below Exam Limited By: No Limitations General Appearance: Alert, No Apparent Distress Ears: Normal External Exam, Normal Canal, Hearing Grossly Normal Nose: Normal Inspection, Normal Mucosa, No Blood Throat/Mouth: Normal Inspection, Normal Lips, Normal Teeth Head: Atraumatic, Normocephalic Neck: Normal Inspection, Supple, Non-Tender, Full Range of Motion Respiratory/Chest: No Respiratory Distress, Lungs Clear, Normal Breath Sounds Cardiovascular: Normal Peripheral Pulses, Regular Rate, Rhythm, No Edema, No Gallop GI/Abdominal: Normal Bowel Sounds, Soft, Non-Tender, No Organomegaly Back Exam: Normal Inspection, Full Range of Motion Extremities: Normal Inspection, Normal Range of Motion Course - Vital Signs Text/Narrative:: Labs reviewed and discussed with patient COVID-neg K=3 Last Recorded V/S: Last Vital Signs Temp 36.9 C 04/05/20 00:55 Pulse 121 H 04/05/20 00:55 Resp 20 04/05/20 00:55 BP 117/89 04/05/20 00:55 Pulse Ox 99 04/05/20 00:55 - Orders/Labs/Meds Labs: Laboratory Tests 04/05/20 04/05/20 04/05/20 Range/Units 01:08 01:10 01:10 WBC 10.1 (4.5-12.0) X10-3/uL RBC 4.29 (3.23-5.20) x10(6)uL Hgb 13.2 D (11.5-15.5) g/dL Hct 40.2 D (30.0-51.3) % MCV 93.6 (80-96) fL MCH 30.7 (27.7-33.6) pg MCHC 32.8 (32.2-35.4) g/dL RDW 12.8 (11.5-15.5) % Plt Count 296 (125-369) X10(3)uL MPV 8.5 (7.4-10.4) fL Neut % (Auto) 64.6 (46-82) % Lymph % (Auto) 24.8 (13-37) % [place] % (Auto) 8.2 (4-12) % Eos % (Auto) 1 (1.0-5.0) % Baso % (Auto) 1 (0-2) % Neut # (Auto) 6.6 (1.6-8.3) # Lymph # (Auto) 2.5 (0.6-5.0) # [place] # (Auto) 0.8 (0.0-1.3) # Eos # (Auto) 0.1 (0.0-0.8) # Baso # (Auto) 0.1 (0.0-0.2) # Sodium 142 (135-145) mmol/L Potassium 3.0 L (3.5-5.3) mmol/L Chloride 105 (100-110) mmol/L Carbon Dioxide 25 (21-32) mmol/L BUN 9 (7-18) mg/dL Creatinine 0.8 (0.55-1.02) mg/dL Est Cr Clr Drug Dosing TNP Estimated GFR (MDRD) > 60 (>60) BUN/Creatinine Ratio 11.3 (9-20) Glucose 89 (80-116) mg/dL Calcium 9.0 (8.6-10.2) mg/dL Total Bilirubin 0.2 (0.1-1.3) mg/dL AST 15 D (5-25) IU/L ALT 19 D (12-36) U/L Alkaline Phosphatase 68 (56-112) IU/L Total Protein 7.9 (6.0-8.0) g/dL Albumin 4.0 (3.5-5.2) g/dL Globulin 3.9 g/dL Albumin/Globulin Ratio 1.0 SARS Virus RNA (PCR) Negative (NEGATIVE) Meds: Medications Discontinued Medications Generic Name Dose Route Start Last Admin Trade Name Freq PRN Reason Stop Dose Admin Guaifenesin/Codeine Phosphate 10 ml 04/05/20 00:56 04/05/20 01:03 Robitussin Ac PO 04/05/20 00:57 10 ml ONETIME ONE Administration Departure - Departure Time of Disposition: 14:30 Disposition: Home, Self-Care 01 Condition: Good Clinical Impression: URI (upper respiratory infection), Hypokalemia - Discharge Information Prescriptions: Potassium Chloride [Klor-Con M20] 40 meq PO TID #6 tab.er.prt Instructions: Upper Respiratory Infection, Adult, [id number] Referrals: Mraky Tovar MD [Primary Care Provider] - Forms: ED Department Discharge Additional Instructions: Please read discharge instructions on URI viral Increase oral fluids,luke warm water Benadryl 50 mg every 6 hours as needed for allergy Klor con 20 meq, take 2 tablets 3 times daily for 2 days Frequent hand washing Robitussin with codeine, take 10 mg every 4-6 hours as needed for cough and cold Follow up as needed Sepsis Event Note (ED) - Evaluation Sepsis Screening Result: No Definite Risk - Focused Exam Vital Signs: Vital Signs Temp Pulse Resp BP Pulse Ox 04/05/20 00:55 36.9 C 121 H 20 117/89 99
== END 2020-04-05 02:45 | disposition home or self-care (01) ==
LOC: FB.ED 00:30
DX: J06.9 Acute upper respiratory infection, unspecified (principal); E87.6 Hypokalemia; Z91.018 Allergy to other foods; Z91.030 Bee allergy status; Z20.828 Contact with and (suspected) exposure to other viral communicable diseases
CPT/HCPCS: 36415; 80053; 85025; 99283; A9270-GY; U0002

== ENCOUNTER 2020-07-23 00:26 | Emergency (ER) | payer MEDICAID, OTHER, SELFPAY ==
--- NOTE | 2020-07-23 00:59 | EDM.PDOC ---
ED HPI GENERAL MEDICAL PROBLEM - General Stated Complaint: COVID SYMPTOMS Time Seen by Provider: 07/23/20 00:58 Source of Information: Reports: Patient History Limitations: Reports: No Limitations - History of Present Illness INITIAL COMMENTS - FREE TEXT/NARRATIVE: 30-year-old female who reports a three-day history of nasal congestion, cough and some feelings of shortness of breath. She also has diffuse body aches, back pain and joint pain. She has had some nausea with vomiting 4 today but she has been able to take liquids and there has been no dizziness or weakness and no feelings of presyncope or syncope. She does report that she has been exposed to someone who has had COVID 19. She also has nasal congestion and sore throat. She has had no loss of taste or smell. She has also noted that her heart rate is somewhat faster than normal. No hemoptysis. In association with the body aches that she is having she also has pain in her chest that is worse with cough and with deep breathing. It is also worse with palpation and with movement of her arms and chest. She rates that pain as about a 5/10. It is aching and sharp the sharp pain is in her chest with breathing and movement and the aching pain is all throughout her body and in her joints. She has had no dysuria or hematuria. She does report that she has had increased urine output. There are no other associated signs or symptoms. There are no other modifying factors. 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 - Related Data Allergies Allergy/AdvReac Type Severity Reaction Status Date / Time nut - unspecified Allergy Face Verified 07/23/20 01:14 swells Throat closes venom-honey bee Allergy Hives Verified 07/23/20 01:14 [bee venom (honey bee)] Home Meds: Home Meds Acetaminophen [Tylenol Extra Strength] 1,000 mg PO Q4HR PRN 12/03/18 [History] Ibuprofen [Advil] 400 mg PO Q6H PRN 05/31/19 [History] Promethazine [Phenergan] 25 mg PO Q6H PRN #16 tab 07/23/20 [Rx] Past Medical History Cardiovascular History: Reports: Other (See Below) Other Cardiovascular History: TRANSIENT HTN OF Respiratory History: Reports: Bronchitis, Recurrent Gastrointestinal History: Reports: GERD Genitourinary History: Reports: Other (See Below) Other Genitourinary History: RUPTURED PUBIC SYMPHYSIS ON 12/2016 DURING VAGINAL DELIVERY Other [employer] History: Other Musculoskeletal History: CHRONIC SHOULDER PAIN. Neurological History: Reports: Migraines Psychiatric History: Reports: Anxiety, Depression Dermatologic History: Reports: Eczema - Infectious Disease History Infectious Disease History: Reports: Chicken Pox - Past Surgical History Female Surgical History: Reports: Section Social & Family History - Family History HEENT: Reports: None Cardiac: Reports: Hypertension, MA Respiratory: Reports: Asthma GI: Reports: GERD : Reports: None OBGYN: Reports: Ectopic , Musculoskeletal: Reports: Back pain, Chronic, Osteoarthritis Neurological: Reports: Alzheimers Disease Psychiatric: Reports: Abuse, Victim of, Anxiety, Bipolar, Depression, Mood Swings, Panic Attack Endocrine/Metabolic: Reports: Diabetes, type II Hematologic: Reports: Anemia Immunologic: Reports: None Dermatologic: Reports: Eczema Oncologic: Reports: Breast, Skin - Tobacco Use Tobacco Use Status *Q: Current Every Day Tobacco User - Caffeine Use Caffeine Use: Reports: Coffee Other Caffeine Use: 4 CUPS - Alcohol Use Alcohol Use History: Yes Alcohol Use Frequency: Socially (Occasionally. She reports she had 2 beers earlier tonight.) - Living Situation & Occupation Occupation: Employed (Works at [employer]) ED [facility] - Review of Systems Review Of Systems: See Below Constitutional: Reports: Fever, Chills, Malaise, Weakness, Fatigue HEENT: Reports: Throat Pain, Other (Nasal congestion) Respiratory: Reports: Shortness of Breath, Pleuritic Chest Pain, Cough. Denies: Hemoptysis Cardiovascular: Reports: Chest Pain (But associated with her multiple body aches.). Denies: Edema, Lightheadedness GI/Abdominal: Reports: Nausea, Vomiting. Denies: Abdominal Pain, Diarrhea : Reports: No Symptoms Musculoskeletal: Reports: Other (Body aches throughout.) Skin: Reports: No Symptoms Neurological: Reports: Headache Psychiatric: Reports: Anxiety Hematologic/Lymphatic: Reports: No Symptoms Immunologic: Reports: No Symptoms ED EXAM, GENERAL - Physical Exam Exam: See Below Exam Limited By: No Limitations General Appearance: Alert, WD/WN, No Apparent Distress, Other (She is awake, alert and appropriate. She speaks in complete sentences. There is no respiratory distress. She appears nontoxic.) Eye Exam: Bilateral Eye: EOMI, Normal Inspection (The sclera are anicteric) Ears: Normal External Exam, Hearing Grossly Normal Ear Exam: Bilateral Ear: Auricle Normal Nose: No Blood, Nasal Drainage, Clear Rhinorrhea Throat/Mouth: Normal Inspection, Normal Lips, Normal Voice, No Airway Compromise Head: Atraumatic, Normocephalic Neck: Normal Inspection, Supple, Non-Tender, Full Range of Motion Respiratory/Chest: No Respiratory Distress, Lungs Clear, Normal Breath Sounds, No Accessory Muscle Use, Chest Non-Tender Cardiovascular: Normal Peripheral Pulses, Regular Rate, Rhythm Peripheral Pulses: 2+: Radial (L), Radial (R) GI/Abdominal: Normal Bowel Sounds, Soft, Non-Tender, No Mass Back Exam: Normal Inspection, Full Range of Motion Extremities: Normal Inspection, Normal Range of Motion, Non-Tender, No Pedal Edema, Normal Capillary Refill Neurological: Alert, Oriented, CN II-XII Intact, Normal Cognition, No Motor/Sensory Deficits Psychiatric: Normal Affect Skin Exam: Warm, Dry, Intact, Normal Color, No Rash Course - Vital Signs Last Recorded V/S: Last Vital Signs Temp 36.9 C 07/23/20 01:00 Pulse 113 H 07/23/20 01:00 Resp 18 07/23/20 01:00 BP 130/79 07/23/20 01:00 Pulse Ox 100 07/23/20 01:00 - Orders/Labs/Meds Orders: Active Orders 24 hr Category Date Time Status CORNONAVIRUS (COVID19) [facility] Routine Lab 07/23/20 01:40 Received Labs: Laboratory Tests 07/23/20 07/23/20 Range/Units 01:25 01:25 Urine Color Yellow (YELLOW) Urine Appearance Slightly cloudy (CLEAR) Urine pH 6.0 (5.0-6.5) Ur Specific [place] 1.030 H (1.010-1.025) Urine Protein Negative (NEGATIVE) mg/dL Urine Glucose (UA) Normal (NORMAL) mg/dL Urine Ketones Negative (NEGATIVE) mg/dL Urine Occult Blood Negative (NEGATIVE) Urine Nitrite Negative (NEGATIVE) Urine Bilirubin Negative (NEGATIVE) Urine Urobilinogen Normal (NEGATIVE) mg/dL Ur Leukocyte Esterase Negative (NEGATIVE) Urine RBC 0-5 (0-5) Urine WBC 0-5 (0-5) Ur Squamous Epith Cells Few H (NS,R,O) Urine Bacteria Few H (NS) Urine Mucus Few H (NS) Urine HCG, Qual Positive H (NEGATIVE) - Re-Assessments/Exams Free Text/Narrative Re-Assessment/Exam: 07/23/20 01:55: The urinalysis was essentially negative. The urine test was positive. She remains with O2 saturation of 100% on room air and has no respiratory distress at this point. She does have a mild tachycardia that probably related to her presumed viral illness. A COVID 19 test is pending and will not be back until Friday of this coming week. She is to have no work until the test comes back and should self quarantine during this period of time. She is to increase her fluid intake. She is to follow-up with her primary provider (after the COVID 19 test has come back negative or until she has self quarantined for 2 weeks a positive test) for OB intake. I will also give the patient a prescription for Phenergan that she can use for nausea she can continue to use Tylenol 1000 mg by mouth every 6 hours as needed for aches and pains and fever. Precautions and reasons for return to the emergency department were discussed with the patient while she was in the emergency department and were detailed her discharge instructions. Departure - Departure Time of Disposition: 02:02 Disposition: Home, Self-Care 01 Condition: Good Clinical Impression: Person under investigation for COVID-19, Early stage of URI (upper respiratory infection) Qualifiers: URI type: unspecified URI Qualified Code(s): J06.9 - Acute upper respiratory infection, unspecified - Discharge Information Prescriptions: Promethazine [Phenergan] 25 mg PO Q6H PRN #16 tab PRN Reason: Nausea/Vomiting Instructions: Upper Respiratory Infection, Adult, [id number], Cough, Adult, [id number], Contact Precautions, [id number], Droplet Precautions, [id number], Airborne Precautions, [id number] Referrals: Marky Tovar MD [Primary Care Provider] - Forms: ED Return to Work/School Form Additional Instructions: Your urine test was normal. Your test was positive. You have an upper respiratory infection and it could be due to COVID 19 or it could be due to some other viral type illness. We did send out a COVID 19 test and the results should be back by Friday of this next week. You will need to self quarantine at least until the test comes back negative. If the test is positive, you will need to self quarantine for 14 days after the test. You need to increase your fluid intake. You may take Tylenol 1000 mg by mouth every 6 hours as needed for fever or pain. I have also given you a prescription for Phenergan that you can take for nausea or vomiting as needed. Follow-up with Dr. Tovar after the COVID 19 test comes back for OB intake. Back to the emergency department for inability to keep liquids down, severe weakness, increasing difficulty breathing or any other concerning sign or symptom. Sepsis Event Note (ED) - Focused Exam Vital Signs: Vital Signs Temp Pulse Resp BP Pulse Ox 07/23/20 01:00 36.9 C 113 H 18 130/79 100 - My Orders Last 24 Hours: My Active Orders 07/23/20 01:40 [facility] (COVID19) [facility] Routine - Assessment/Plan Last 24 Hours: My Active Orders 07/23/20 01:40 CORNONAVIRUS (COVID19) [facility] Routine
[2020-07-23 01:13] VITALS: BP 130/79; PULSE 113
[2020-07-25 20:15] LABS: CORNONAVIRUS (COVID19) CSH-NRL Negative (Negative)
== END 2020-07-23 02:20 | disposition home or self-care (01) ==
LOC: FB.ED 00:26
DX: O99.891 Other specified diseases and conditions complicating pregnancy (principal); R06.02 Shortness of breath; M54.9 Dorsalgia, unspecified; O99.331 Smoking (tobacco) complicating pregnancy, first trimester; F17.200 Nicotine dependence, unspecified, uncomplicated; Z20.828 Contact with and (suspected) exposure to other viral communicable diseases; Z91.030 Bee allergy status; Z91.018 Allergy to other foods
CPT/HCPCS: 81001; 81025; 99284; U0003

== ENCOUNTER 2023-02-17 21:15 | Emergency (ER) | payer MEDICAID ==
[2023-02-17 21:40] VITALS: BP 134/95; PULSE 88
[2023-02-17] MEDS ORDERED: Benzonatate 100 MG Cap PO ONE (21:52)
[2023-02-17] MEDS ORDERED: predniSONE 20 MG Tab PO ONE (21:55)
== END 2023-02-17 22:09 | disposition home or self-care (01) ==
LOC: FB.ED 21:15
DX: J98.8 Other specified respiratory disorders (principal); B97.89 Other viral agents as the cause of diseases classified elsewhere; R09.1 Pleurisy; F17.210 Nicotine dependence, cigarettes, uncomplicated; Z91.018 Allergy to other foods; Z91.030 Bee allergy status
CPT/HCPCS: 99282; A9270; J7512

== ENCOUNTER 2023-02-20 10:13 | Emergency (ER) | payer MEDICAID ==
[2023-02-20 11:03] LABS: HEMATOCRIT 41.5 % (34.2-48.2); HEMOGLOBIN 13.7 g/dL (11.4-15.5); MEAN CORPUSCULAR HEMOGLOBIN 29.8 pg (23.9-33.9); MEAN CORPUSCULAR HGB CONC 33.1 g/dL (31.9-34.8); MEAN CORPUSCULAR VOLUME 90.2 fL (76.7-100.5); MEAN PLATELET VOLUME 8.5 fL (7.1-12.4); PLATELET COUNT,PLT 432 x10(3)uL (151-488); RED CELL DISTRIBUTION WIDTH 12.8 % (12.3-16.5); WHITE BLOOD CELL COUNT,WBC 14.3 x10-3/uL (3.0-10.3)
[2023-02-20 11:08] LABS: BLOOD UREA NITROGEN,BUN 13 mg/dL (7-18); BUN/CREATININE RATIO 16.3 (9-20); CALCIUM 9.4 mg/dL (8.6-10.2); CARBON DIOXIDE,CO2 28 mmol/L (21-32); CHLORIDE,CL 101 mmol/L (100-110); CREATININE 0.8 mg/dL (0.55-1.02); ESTIMATED GFR 100 mL/min (>60); GLUCOSE RANDOM 105 mg/dL (80-116); SODIUM,NA 138 mmol/L (135-145)
[2023-02-20 11:25] LABS: LYMPHOCYTES PERCENT MAN 15 % (13-37); MONOCYTES PERCENT MAN 1 % (4-12); SEG NEUTROPHILS PERCENT MAN 84 % (46-82)
[2023-02-20 12:45] VITALS: BP 124/68; PULSE 74
== END 2023-02-20 12:44 | disposition home or self-care (01) ==
LOC: FB.ED 10:13
DX: J20.9 Acute bronchitis, unspecified (principal); Z91.018 Allergy to other foods; Z91.030 Bee allergy status; Z20.822 Contact with and (suspected) exposure to COVID-19
CPT/HCPCS: 36415; 71046; 80048; 85025; 85379; 99283; U0002

== ENCOUNTER 2023-05-11 14:27 | Emergency (ER) | payer MEDICAID ==
[2023-05-11 14:48] VITALS: BP 136/81
[2023-05-11 15:04] VITALS: PULSE 77
== END 2023-05-11 15:20 | disposition home or self-care (01) ==
LOC: FB.ED 14:27
DX: B02.9 Zoster without complications (principal); K21.9 Gastro-esophageal reflux disease without esophagitis; Z91.030 Bee allergy status; Z91.018 Allergy to other foods; Z79.899 Other long term (current) drug therapy
CPT/HCPCS: 99282; 99283

== ENCOUNTER 2023-09-04 03:17 | Emergency (ER) | payer MEDICAID ==
[2023-09-04] MEDS ORDERED: Dexamethasone 4 MG Tab PO ONE (04:10)
[2023-09-04] MEDS ORDERED: Benzonatate 100 MG Cap PO ONE (04:10)
[2023-09-04] MEDS ORDERED: Ketorolac 30 MG/ML SDV IM ONE (04:10)
[2023-09-04 05:33] VITALS: BP 137/83; PULSE 77
== END 2023-09-04 05:20 | disposition home or self-care (01) ==
LOC: FB.ED 03:17
DX: R09.1 Pleurisy (principal); Z91.018 Allergy to other foods; Z91.030 Bee allergy status
CPT/HCPCS: 96372; 99283; A9270; J1885; J8540